=== PATIENT | male | born 1935 | race Caucasian/White ===

== ENCOUNTER 2017-11-30 11:01 | Inpatient (IN) | payer MEDICARE, BC ==
[2017-11-30] MEDS ORDERED: LIDOCAINE URO-JET JELLY 2% 5 ML KIT URETHRAL ONE (11:57)
[2017-11-30 12:11] LABS: Basophils % (A) 0 %; Eosinophils # (A) 0.1 k/uL (0-0.7); Eosinophils % (A) 2 %; HCT 41.1 % (39.0-53.0); HGB 13.2 gm/dL (13.0-17.5); Lymphocytes # (A) 0.8 k/uL (1.0-4.8); Lymphocytes % (A) 9 %; MCH 32.6 pg (25.0-35.0); MCHC 32.2 g/dL (31.0-37.0); MCV 101.4 fL (80.0-100.0); Monocytes # (A) 0.5 k/uL (0-1.0); Monocytes % (A) 5 %; Neutrophils # (A) 7.3 k/uL (1.3-7.7); Neutrophils % (A) 83 %; Platelet Count 374 k/uL (150-450); RBC 4.05 m/uL (4.30-5.90); RDW 12.6 % (11.5-15.5); WBC 8.8 k/uL (3.8-10.6)
[2017-11-30 12:22] LABS: Albumin 3.1 g/dL (3.5-5.0); Calcium 9.1 mg/dL (8.4-10.2); Potassium 4.5 mmol/L (3.5-5.1); Total Bilirubin 0.7 mg/dL (0.2-1.3); Total Protein 5.9 g/dL (6.3-8.2)
--- NOTE | 2017-11-30 12:29 | ED ---
Abdominal Pain HPI - General Chief Complaint: Abdominal Pain Stated Complaint: MALE , ABD PAIN Time Seen by Provider: 11/30/17 11:48 Source: family, RN notes reviewed, old records reviewed Mode of arrival: ambulatory Limitations: no limitations - History of Present Illness Initial Comments: 82-year-old male presenting with abdominal swelling. Patient is accompanied by his was able to contribute to the history. He has advanced dementia. She states he has had some intermittent complaints of abdominal pain. She hasn't noted lower abdominal swelling over the past one month. This has progressed to the point where the patient cannot button his pants. No fever or chills. No nausea vomiting. Patient has been having a normal bowel movement every day. - Related Data Home Medications Medication Instructions Recorded Confirmed Aricept 23mg 23 mg PO HS 11/30/17 11/30/17 Cholecalciferol [Vitamin D3] 1,000 unit PO DAILY 11/30/17 11/30/17 Fish Oil/Dha/Epa [Fish Oil 1,200 1 cap PO DAILY 11/30/17 11/30/17 mg Fish Oil] Flaxseed Oil [[place]-3 Flaxseed Oil] 1,000 mg PO DAILY 11/30/17 11/30/17 Memantine [Namenda] 10 mg PO BID 11/30/17 11/30/17 Red Yeast Rice 600 mg PO DAILY 11/30/17 11/30/17 buPROPion XL [Wellbutrin Xl] 150 mg PO DAILY 11/30/17 11/30/17 Allergies Allergy/AdvReac Type Severity Reaction Status Date / Time No Known Allergies Allergy Verified 11/30/17 12:51 Review of Systems ROS Statement: Those systems with pertinent positive or pertinent negative responses have been documented in the HPI. ROS Other: All systems not noted in ROS Statement are negative. Past Medical History Past Medical History: Dementia, Hyperlipidemia History of Any Multi-Drug Resistant Organisms: None Reported Past Surgical History: Hernia Repair Additional Past Surgical History / Comment(s): carpal tunnel surgery, vasectomy , cataract surgery Past Psychological History: No Psychological Hx Reported Smoking Status: Never smoker Past Alcohol Use History: None Reported Past Drug Use History: None Reported General Exam Limitations: no limitations General appearance: in no apparent distress Head exam: Present: atraumatic, normocephalic Eye exam: Present: normal appearance, PERRL ENT exam: Present: mucous membranes dry Neck exam: Present: normal inspection. Absent: tenderness, meningismus Respiratory exam: Present: decreased breath sounds (Decreased breath sounds right lung head.). Absent: respiratory distress, wheezes, rales Cardiovascular Exam: Present: regular rate, normal rhythm GI/Abdominal exam: Present: soft, distended, mass. Absent: tenderness Extremities exam: Present: normal inspection, normal capillary refill Skin exam: Present: warm, dry, intact. Absent: cyanosis, diaphoretic Course Vital Signs 11/30/17 11/30/17 11:19 14:04 Temperature 97.9 F 97.7 F Pulse Rate 86 77 Respiratory 16 18 Rate Blood Pressure 142/85 150/81 O2 Sat by Pulse 96 95 Oximetry Medical Decision Making - Medical Decision Making 82-year-old male presenting with abdominal distention, bili is somewhat distended, there is concern for intra-abdominal pathology, given the patient is poor historian, CT is obtained, this is negative for significant acute intra- abdominal abnormalities, there is evidence of a large right-sided pleural effusion, chest CT is obtained which confirms near-complete hydro-thorax. There is some mediastinal shift. Patient has normal oxygenation, stable vital signs. Case is discussed with pulmonology, Dr. Courtney, recommends ultrasound. Patient will be admitted for further treatment and evaluation. Laboratory studies reviewed, normal white blood cell count, stable hemoglobin, CMP is unremarkable. - Lab Data Result diagrams: 11/30/17 11:43 11/30/17 11:43 Lab Results 11/30/17 11/30/17 11/30/17 Range/Units 11:43 11:43 13:15 WBC 8.8 (3.8-10.6) k/uL RBC 4.05 L (4.30-5.90) m/uL Hgb 13.2 (13.0-17.5) gm/dL Hct 41.1 (39.0-53.0) % MCV 101.4 H (80.0-100.0) fL MCH 32.6 (25.0-35.0) pg MCHC 32.2 (31.0-37.0) g/dL RDW 12.6 (11.5-15.5) % Plt Count 374 (150-450) k/uL Neutrophils % 83 % Lymphocytes % 9 % Monocytes % 5 % Eosinophils % 2 % Basophils % 0 % Neutrophils # 7.3 (1.3-7.7) k/uL Lymphocytes # 0.8 L (1.0-4.8) k/uL Monocytes # 0.5 (0-1.0) k/uL Eosinophils # 0.1 (0-0.7) k/uL Basophils # 0.0 (0-0.2) k/uL Sodium 142 (137-145) mmol/L Potassium 4.5 (3.5-5.1) mmol/L Chloride 106 (98-107) mmol/L Carbon Dioxide 28 (22-30) mmol/L Anion Gap 8 mmol/L BUN 23 H (9-20) mg/dL Creatinine 1.01 (0.66-1.25) mg/dL Est GFR (CKD-EPI)AfAm 80 (>60 ml/min/1.73 sqM) Est GFR (CKD-EPI)NonAf 69 (>60 ml/min/1.73 sqM) Glucose 168 H (74-99) mg/dL Calcium 9.1 (8.4-10.2) mg/dL Total Bilirubin 0.7 (0.2-1.3) mg/dL AST 44 (17-59) U/L ALT 52 (21-72) U/L Alkaline Phosphatase 97 (38-126) U/L Total Protein 5.9 L (6.3-8.2) g/dL Albumin 3.1 L (3.5-5.0) g/dL Amylase 90 (30-110) U/L Lipase 72 (23-300) U/L Urine Color Yellow Urine Appearance Clear (Clear) Urine pH 5.5 (5.0-8.0) Ur Specific [place] 1.024 (1.001-1.035) Urine Protein Trace H (Negative) Urine Glucose (UA) Negative (Negative) Urine Ketones Negative (Negative) Urine Blood Negative (Negative) Urine Nitrite Negative (Negative) Urine Bilirubin Negative (Negative) Urine Urobilinogen 2.0 (<2.0) mg/dL Ur Leukocyte Esterase Trace H (Negative) Urine RBC 1 (0-5) /hpf Urine WBC 7 H (0-5) /hpf Urine Mucus Few H (None) /hpf Disposition Clinical Impression: Pleural effusion Disposition: ADMITTED IP TO THIS HOSP Condition: Stable Is patient prescribed a controlled substance at d/c from ED?: No Referrals: Richard Katz MD [Primary Care Provider] - 1-2 days Decision to Admit Reason: Admit from EC Decision Date: 11/30/17 Decision Time: 15:23
[2017-11-30 13:50] LABS: Appearance,Urine Clear (Clear); Bilirubin,Urine Negative (Negative); Blood,Urine Negative (Negative); Color,Urine Yellow; Glucose,Urine (UA) Negative (Negative); Ketones,Urine Negative (Negative); Leukocyte Esterase,Urine Trace (Negative); Mucus,Urine Few /hpf; Nitrite,Urine Negative (Negative); PH, Urine 5.5 (5.0-8.0); Protein,Urine Trace (Negative); RBC,Urine 1 /hpf (0-5); Specific Gravity,Urine 1.024 (1.001-1.035); WBC,Urine 7 /hpf (0-5)
--- NOTE | 2017-11-30 14:02 | CT ---
EXAMINATION TYPE: CT abdomen pelvis w con DATE OF EXAM: 11/30/2017 REFERENCE: Previous study dated 10/16/2005. HISTORY: abdominal pain HISTORY: Abdominal pain REFERENCE: NONE CT DLP: 547.6 mGy Automated exposure control for dose reduction was used. TECHNIQUE: Helical acquisition through the abdomen and pelvis was obtained following the oral ingesti on of without Oral Contrast and following intravenous administration of 100 mL of Isovue 300. The axel a was reformatted in axial, coronal and sagittal projections. FINDINGS: There is a large right-sided pleural effusion with complete atelectasis of the visualized portions of the right lung. There is a smaller left effusion. There is calcified pleural plaque on th e left. The heart is shifted towards the left. There is no definite pericardial fluid. The heart is not enlar ged. The right hemidiaphragm is displaced inferiorly. The liver is prominent measuring 18 cm. There appears to be soft tissue within the gallbladder. The s pleen is unremarkable. Both adrenal glands are normal. Both kidneys demonstrate function and appear morphologically normal. The pancreas is not well-visualized. There is moderate atheromatous calcification of the visualized arterial tree. The bladder is not distended. There is some questionable thickening of the sigmoid colon. This may BE secondary to lack of distenti on. Small bowel caliber is normal. There is no free fluid and no free air. There is degenerative disc disease and facet arthropathy and hypertrophic spondylosis within the spin e. No bony destructive lesion is seen. IMPRESSION: 1. RIGHT-SIDED HYDROTHORAX DISPLACING THE DIAPHRAGM INFERIORLY IN THE MEDIASTINAL STRUCTURES TOWARDS THE LEFT MAY BE UNDER TENSION. 2. COMPLETE COLLAPSE OF THE VISUALIZED PORTIONS OF THE RIGHT LUNG. 3. EVIDENCE OF OLD SPECIFICITY EXPOSURE WITH CALCIFIED PLEURAL PLAQUES. 4. SMALL LEFT PLEURAL EFFUSION. 5. MILD HEPATOMEGALY. 6. QUESTIONABLE THICKENING OF THE SIGMOID COLON. PLEASE CORRELATE FOR COLITIS. 7. DEGENERATIVE CHANGES WITHIN THE SPINE.
[2017-11-30 14:04] VITALS: RESP 18; TEMP 97.7
--- NOTE | 2017-11-30 15:13 | CT ---
EXAMINATION TYPE: CT chest wo con DATE OF EXAM: 11/30/2017 COMPARISON: CT abdomen pelvis earlier today. HISTORY: Abnormal CT abd/pel. CT DLP: 265.6 mGycm. Automated Exposure Control for Dose Reduction was Utilized. TECHNIQUE: CT scan of the thorax is performed without IV contrast. FINDINGS: LUNGS: Large right pleural effusion is confirmed with associated compressive atelectasis, there is mi nimal aerated lung medial right upper lobe. There is additional consolidation/atelectasis at this lev el. There is mass effect on the mediastinum which is deviated to left of midline. Evaluation suboptim al as there is significant respiratory motion artifact degradation. Mild underlying emphysematous casper nge is felt present. There is tiny left pleural effusion. There is medial left lung anterior irregula r groundglass opacity near axial image 33. MEDIASTINUM: Lack of IV contrast is noted to limit evaluation for mediastinal and especially hilar ad enopathy. There are no definitive greater than 1 cm hilar or mediastinal lymph nodes. No cardiomega ly or pericardial effusion is seen. Coronary artery calcification is present which is noted marker fo r underlying coronary artery disease. OTHER: Please refer to same day CT abdomen and pelvis report for complete details on the visualized u pper abdomen. Secretion from recent contrast-enhanced CT in the kidneys is noted. Osseous structures are demineralized with slight S-shaped scoliotic curvature. There is exaggerated thoracic kyphosis wi th moderate to severe multilevel anterior spurring. Bilateral gynecomastia is felt present. IMPRESSION: Large right pleural effusion causing mediastinal shift to the left is confirmed. Backgrou nd mild emphysematous change. Perhaps patchy acute infectious process anterior left mid lung. Conside r thoracentesis for diagnostic and/or therapeutic purposes.
[2017-11-30] MEDS ORDERED: ACETAMINOPHEN TAB 325 MG TAB PO PRN (15:19)
[2017-11-30] MEDS ORDERED: NALOXONE 0.4 MG/ML 1 ML VIAL IV PRN (15:19)
[2017-11-30] MEDS ORDERED: LIDOCAINE 2% INJ 20 MG/ML (20 ML MDV) SQ STA (17:36)
--- NOTE | 2017-11-30 17:54 | XR ---
EXAMINATION TYPE: XR chest 1V DATE OF EXAM: 11/30/2017 CLINICAL HISTORY: Right-sided thoracentesis. TECHNIQUE: Single AP portable upright view of the chest is obtained. COMPARISON: Chest CT from earlier today. FINDINGS: There is residual small to moderate-sized right-sided pleural effusion after thoracentesis with associated compressive atelectasis. There is marked improvement from CT with improvement in med iastinal shift. Background chronic emphysematous change with scattered left midlung atelectasis and/o r infiltrate remains present. Cardiac silhouette size is within normal limits. Demineralization is pr esent. Note is made of bilateral calcified pleural plaques seen in retrospect on CT. IMPRESSION: Marked improvement in right-sided pleural effusion and mediastinal shift after thoracente sis. Chronic emphysematous change and evidence of underlying asbestos exposure. Patchy left mid lung atelectasis and/or infiltrate is redemonstrated. Persistent small right pleural effusion and associat ed right basilar atelectasis and/or infiltrate. No sizable pneumothorax.
--- NOTE | 2017-11-30 18:01 | P.CNPUL ---
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 Patient presented to the ER with mostly from abdominal vague discomfort, and some shortness of breath. Workup included a CT of the abdomen which was basically nondiagnostic except it did show large right-sided pleural effusion with complete atelectasis of the right lung, there was also evidence of calcified pleural plaque on the left, there was displacement of the right hemidiaphragm inferiorly, and shifting of the trachea to the contralateral side. Abdominal organs were noted to be relatively unremarkable. I was notified from the ER physician about this patient, I came in, reviewed his CT of the chest, chest x- ray, and I recommended a right-sided thoracentesis at bedside in the ER. Consent was obtained from the and from the daughter, I proceeded to a right -sided thoracentesis, and I was able to drain 3.2 L of serosanguineous fluid from the right pleural space. Patient felt much better after the procedure, hence I discussed with the patient and with the family the option of being discharged home and follow up with me on outpatient basis in the next few days. Family seems to be quite agreeable to this recommendation, the fluid was sent for cytology, it is strongly suspicious for malignancy. And the patient will be discharged home. I discussed the patient's condition with the ER physician, and we both agreed on discharging the patient home. And follow-up on outpatient basis. Review of Systems ROS unobtainable: due to mental status (Patient is a very poor historian, he has significant dementia, denied any specific complaints, but according to the daughter he has been generally weak, losing weight, poor appetite, shortness of breath, some vague abdominal discomfort. Otherwise no significant symptomatology.) Past Medical History Past Medical History: Dementia, Hyperlipidemia History of Any Multi-Drug Resistant Organisms: None Reported Past Surgical History: Hernia Repair Additional Past Surgical History / Comment(s): carpal tunnel surgery, vasectomy , cataract surgery Past Psychological History: No Psychological Hx Reported Smoking Status: Never smoker Past Alcohol Use History: None Reported Past Drug Use History: None Reported Medications and Allergies Home Medications Medication Instructions Recorded Confirmed Type Aricept 23mg 23 mg PO HS 11/30/17 11/30/17 History Cholecalciferol [Vitamin D3] 1,000 unit PO DAILY 11/30/17 11/30/17 History Fish Oil/Dha/Epa [Fish Oil 1,200 1 cap PO DAILY 11/30/17 11/30/17 History mg Fish Oil] Flaxseed Oil [[place]-3 Flaxseed Oil] 1,000 mg PO DAILY 11/30/17 11/30/17 History Memantine [Namenda] 10 mg PO BID 11/30/17 11/30/17 History Red Yeast Rice 600 mg PO DAILY 11/30/17 11/30/17 History buPROPion XL [Wellbutrin Xl] 150 mg PO DAILY 11/30/17 11/30/17 History Allergies Allergy/AdvReac Type Severity Reaction Status Date / Time No Known Allergies Allergy Verified 11/30/17 12:51 Physical Exam Vitals: Vital Signs Temp Pulse Resp BP Pulse Ox 11/30/17 14:04 97.7 F 77 18 150/81 95 11/30/17 11:19 97.9 F 86 16 142/85 96 Intake and Output 11/30/17 11/30/17 11/30/17 06:59 14:59 22:59 Other: Weight 63.503 kg Physical Exam revealed an 82-year-old white male in no distress. Head: Atraumatic, normocephalic. HEENT:[Neck is supple.] [No neck masses.] [No thyromegaly.] [No JVD.] Chest: [Extremely diminished breath sounds on the right side, dullness on the right side, left side is relatively clear, no chest wall tenderness.] Cardiac Exam: [Normal S1 and S2, no S3 gallop, no murmur.] Abdomen: [Soft, nontender, no megaly, no rebound, no guarding, normal bowel sounds.] Extremities: [No clubbing, no edema, no cyanosis.] Neurological Exam: Confused, but no other focal neurologic deficit.] Lymphatics: No lymphadenopathy. Psychiatric: Normal mood, affect, confused, poor mental status examination. Skin: No rashes, good skin turgor, no cyanosis. Results - Laboratory Findings CBC and BMP: 11/30/17 11:43 11/30/17 11:43 Abnormal lab findings: Abnormal Labs 11/30/17 11/30/17 11/30/17 11:43 11:43 13:15 RBC 4.05 L MCV 101.4 H Lymphocytes # 0.8 L BUN 23 H Glucose 168 H Total Protein 5.9 L Albumin 3.1 L Urine Protein Trace H Ur Leukocyte Esterase Trace H Urine WBC 7 H Urine Mucus Few H - Diagnostic Findings CT scan - chest: image reviewed (As noted in HPI, there is large right-sided pleural effusion with compressive atelectasis of the right lung significant shift to the left,) Assessment and Plan Assessment: Impression: 1 large right-sided pleural effusion, most likely malignant unless proven otherwise. Considering the patient's history of being a refinery pipeline operator, this is most likely mesothelioma unless proven otherwise. 2 senile dementia 3 abdominal pain, most likely secondary to downward displacement of the diaphragm from large right-sided pleural effusion. 4 status post right sided thoracentesis and 3.2 L of serosanguineous fluid removed from the right pleural space. Recommendation: Consider discharging the patient home, see me in the office in 3 days. Patient is to come back to the ER if he develops any worsening pulmonary symptoms in the next 3 days. Otherwise I will see him in the office in 3 days. Time with Patient: Greater than 30
--- NOTE | 2017-11-30 18:01 | ED ---
Medical Decision Making - Medical Decision Making Patient given outpatient referral information for Dr. Courtney. - Lab Data Result diagrams: 11/30/17 11:43 11/30/17 11:43 Lab Results 11/30/17 11/30/17 11/30/17 Range/Units 11:43 11:43 13:15 WBC 8.8 (3.8-10.6) k/uL RBC 4.05 L (4.30-5.90) m/uL Hgb 13.2 (13.0-17.5) gm/dL Hct 41.1 (39.0-53.0) % MCV 101.4 H (80.0-100.0) fL MCH 32.6 (25.0-35.0) pg MCHC 32.2 (31.0-37.0) g/dL RDW 12.6 (11.5-15.5) % Plt Count 374 (150-450) k/uL Neutrophils % 83 % Lymphocytes % 9 % Monocytes % 5 % Eosinophils % 2 % Basophils % 0 % Neutrophils # 7.3 (1.3-7.7) k/uL Lymphocytes # 0.8 L (1.0-4.8) k/uL Monocytes # 0.5 (0-1.0) k/uL Eosinophils # 0.1 (0-0.7) k/uL Basophils # 0.0 (0-0.2) k/uL Sodium 142 (137-145) mmol/L Potassium 4.5 (3.5-5.1) mmol/L Chloride 106 (98-107) mmol/L Carbon Dioxide 28 (22-30) mmol/L Anion Gap 8 mmol/L BUN 23 H (9-20) mg/dL Creatinine 1.01 (0.66-1.25) mg/dL Est GFR (CKD-EPI)AfAm 80 (>60 ml/min/1.73 sqM) Est GFR (CKD-EPI)NonAf 69 (>60 ml/min/1.73 sqM) Glucose 168 H (74-99) mg/dL Calcium 9.1 (8.4-10.2) mg/dL Total Bilirubin 0.7 (0.2-1.3) mg/dL AST 44 (17-59) U/L ALT 52 (21-72) U/L Alkaline Phosphatase 97 (38-126) U/L Total Protein 5.9 L (6.3-8.2) g/dL Albumin 3.1 L (3.5-5.0) g/dL Amylase 90 (30-110) U/L Lipase 72 (23-300) U/L Urine Color Yellow Urine Appearance Clear (Clear) Urine pH 5.5 (5.0-8.0) Ur Specific [place] 1.024 (1.001-1.035) Urine Protein Trace H (Negative) Urine Glucose (UA) Negative (Negative) Urine Ketones Negative (Negative) Urine Blood Negative (Negative) Urine Nitrite Negative (Negative) Urine Bilirubin Negative (Negative) Urine Urobilinogen 2.0 (<2.0) mg/dL Ur Leukocyte Esterase Trace H (Negative) Urine RBC 1 (0-5) /hpf Urine WBC 7 H (0-5) /hpf Urine Mucus Few H (None) /hpf Disposition Clinical Impression: Pleural effusion Disposition: HOME SELF-CARE Condition: Fair Is patient prescribed a controlled substance at d/c from ED?: No Time of Disposition: 18:01
[2017-11-30 18:02] VITALS: BP 129/72; PULSE 70
[2017-11-30 21:53] LABS: Appearance,BF Bloody
[2017-11-30 21:54] LABS: Nucleated Cells, Body Fluid 200 /uL; RBC, Body Fluid 37200 /uL
[2017-11-30 21:56] LABS: Mononuclear WBC,Body Fluid 19 %; Polynuclear WBC,Body Fluid 76 %; Total Cells Counted,Body Fluid 100
--- NOTE | 2017-11-30 21:58 | PCN ---
PROCEDURE NOTE OPERATIVE REPORT: Right-sided thoracentesis. PREOPERATIVE DIAGNOSIS: Large right pleural effusion. POSTOPERATIVE DIAGNOSIS: Large right pleural effusion. ANESTHESIA: Used 3 mL of 1% lidocaine. PROCEDURE: Verbal consent was obtained from his over the phone and from his daughter at bedside. The patient was placed in a sitting upright position, leaning forward on a bedside table. The area below the right scapula was prepared in a sterile fashion and drapes were applied. At the level of the 8th intercostal space and tip of the scapula, the area was locally anesthetized. With 3 mL of 1% lidocaine. Then a 23-gauge needle was advanced into the pleural space, and fluid was localized, noted to be serosanguineous. Then a small tiny incision was made, and a standard thoracentesis catheter and needle were used. Needle inserted at the same site, advanced into the pleural space. When the fluid was obtained, the catheter was advanced and the needle was pulled out of the pleural space. Free-flowing fluid was removed, the fluid was serosanguineous, we removed a total of 3.2 L of serosanguineous fluid from the right pleural space. Highly suggestive of malignancy based on the appearance of the fluid. The procedure was well tolerated, no evidence of any immediate complications. Chest x- ray postoperatively showed no evidence of complications, there was a very minimal residual right-sided effusion noted and there was significant and dramatic expansion of the right lung. MMODL / IJN: [id number] /
[2017-12-02 10:24] LABS: Total Protein, Body Fluid 4000 mg/dL
== END 2017-11-30 18:13 | disposition home or self-care (01) | DRG 188 ==
LOC: EC 11:01 → 6SEL 15:19
PROVIDERS: ADMIT Hospitalist; ATTEND Hospitalist
PROC: 0W993ZX Drainage of Right Pleural Cavity, Percutaneous Approach, Diagnostic (ICD-10-PCS; principal; 2017-11-30)
DX: J90 Pleural effusion, not elsewhere classified (principal); R10.9 Unspecified abdominal pain; R06.02 Shortness of breath; E78.5 Hyperlipidemia, unspecified; F03.90 Unspecified dementia, unspecified severity, without behavioral disturbance, psychotic disturbance, mood disturbance, and anxiety; Z79.899 Other long term (current) drug therapy; Z87.891 Personal history of nicotine dependence
CPT/HCPCS: 32554; 36415; 71045; 71250; 74177; 80053; 81001; 82150; 82945; 83615; 83690; 84157; 85025; 87070; 87077; 87102; 87116; 87186; 87205; 87206; 89050; 99285

== ENCOUNTER 2017-12-10 22:27 | Inpatient (IN) | payer MEDICARE, BC ==
--- NOTE | 2017-12-10 23:06 | ED ---
SOB HPI - General Chief Complaint: Shortness of Breath Stated Complaint: lung pain & poss fluid on lungs Time Seen by Provider: 12/10/17 22:49 Source: family Mode of arrival: wheelchair Limitations: no limitations - History of Present Illness Initial Comments: [place] is an 82-year-old male with past medical history is documented below, most significant for recent development of a pleural effusion which was drained by pulmonology last week with 3.2 L of fluid removed. Patient was subsequently discharged home feeling much better at that time. His brought him back to the emergency department today for reevaluation due to worsening shortness of breath, increased work of breathing and concerned that he has a fever. His reports that she noted that his face is and knows it appeared flushed since yesterday. Today she noticed that he seemed to be working hard to breathe , breathing rapidly and felt warm to the touch. She reports that she tried to listen to his breathing and was concerned that fluid had reaccumulated in his right long period. reports that they're uncertain of the cause of the effusion, there is concern that he may have cancer of though there is been no definitive diagnosis. Patient presently demented but reports mild discomfort on his right side, mild shortness of breath and subjective fevers and chills. - Related Data Home Medications Medication Instructions Recorded Confirmed Aricept 23mg 23 mg PO HS 11/30/17 12/10/17 Cholecalciferol [Vitamin D3] 1,000 unit PO DAILY 11/30/17 12/10/17 Fish Oil/Dha/Epa [Fish Oil 1,200 1 cap PO DAILY 11/30/17 12/10/17 mg Fish Oil] Flaxseed Oil [[place]-3 Flaxseed Oil] 1,000 mg PO DAILY 11/30/17 12/10/17 Memantine [Namenda] 10 mg PO BID 11/30/17 12/10/17 Red Yeast Rice 600 mg PO DAILY 11/30/17 12/10/17 buPROPion XL [Wellbutrin Xl] 150 mg PO DAILY 11/30/17 12/10/17 Allergies Allergy/AdvReac Type Severity Reaction Status Date / Time No Known Allergies Allergy Verified 12/10/17 22:47 Review of Systems ROS Statement: Those systems with pertinent positive or pertinent negative responses have been documented in the HPI. ROS Other: All systems not noted in ROS Statement are negative. Past Medical History Past Medical History: Dementia, Hyperlipidemia History of Any Multi-Drug Resistant Organisms: MRSA Date of last positivie culture/infection: 11/30/17 MDRO Source:: MRSA PLEURAL FLUID Past Surgical History: Hernia Repair Additional Past Surgical History / Comment(s): carpal tunnel surgery, vasectomy , cataract surgery Past Psychological History: No Psychological Hx Reported Smoking Status: Never smoker Past Alcohol Use History: None Reported Past Drug Use History: None Reported General Exam - General Exam Comments Initial Comments: Physical Exam GENERAL: Chronically ill-appearing elderly gentleman HENT: Normocephalic, Atraumatic. EYES: PERRL, EOMI PULMONARY: Decreased breath sounds on the right CARDIOVASCULAR: RRR ABDOMEN: Soft and nontender with normal bowel sounds. SKIN: Skin is clear with senile changes : Deferred NEUROLOGIC: Patient is alert and oriented to self. Moving all extremities spontaneously MUSCULOSKELETAL: Normal extremities with adequate strength and full range of motion. No lower extremity swelling or edema. No calf tenderness. Diffuse atrophy PSYCHIATRIC: Normal psychiatric evaluation. 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 ] Respiratory 18 18 Rate Blood Pressure 146/71 O2 Sat by Pulse 93 L Oximetry 12/10/17 12/10/17 12/11/17 23:10 23:40 00:10 Temperature Pulse Rate 72 70 71 Pulse Rate [ Alkylation Operator ] Respiratory 19 18 17 Rate Blood Pressure 146/80 148/76 141/90 O2 Sat by Pulse 98 97 96 Oximetry 12/11/17 12/11/17 12/11/17 00:50 01:30 02:00 Temperature Pulse Rate 66 68 72 Pulse Rate [ Alkylation Operator ] Respiratory 19 19 19 Rate Blood Pressure 134/90 135/70 160/79 O2 Sat by Pulse 95 95 94 L Oximetry Medical Decision Making - Medical Decision Making The patient was seen and evaluated, history was reviewed through the chart and the . Patient able to answer questions otherwise history limited by his dementia Patient with recurrent pleural effusions, no appears flushed, warm to the touch , increased work of breathing Patient is tachycardic and tachypneic upon initial evaluation Labs and imaging were ordered Imaging suggestive of new bilateral infiltrates suggestive of pneumonia, given the patient's recent hospitalization an unknown underlying etiology I will treat with broad-spectrum antibiotics Given the patient diagnosis of bilateral pneumonia, recurrent pleural effusion I will plan to admit the patient for further evaluation. Consult pulmonology was placed. - Lab Data Result diagrams: 12/10/17 23:00 12/10/17 23:00 Lab Results 12/10/17 12/10/17 12/10/17 Range/Units 23:00 23:00 23:00 WBC 11.4 H (3.8-10.6) k/uL RBC 3.91 L (4.30-5.90) m/uL Hgb 12.4 L (13.0-17.5) gm/dL Hct 39.8 (39.0-53.0) % MCV 101.8 H (80.0-100.0) fL MCH 31.7 (25.0-35.0) pg MCHC 31.1 (31.0-37.0) g/dL RDW 12.6 (11.5-15.5) % Plt Count 483 H (150-450) k/uL Neutrophils % 77 % Lymphocytes % 11 % Monocytes % 8 % Eosinophils % 2 % Basophils % 0 % Neutrophils # 8.7 H (1.3-7.7) k/uL Lymphocytes # 1.3 (1.0-4.8) k/uL Monocytes # 0.9 (0-1.0) k/uL Eosinophils # 0.2 (0-0.7) k/uL Basophils # 0.0 (0-0.2) k/uL PT (9.0-12.0) sec INR (<1.2) APTT (22.0-30.0) sec Sodium 136 L (137-145) mmol/L Potassium 5.1 (3.5-5.1) mmol/L Chloride 104 (98-107) mmol/L Carbon Dioxide 25 (22-30) mmol/L Anion Gap 7 mmol/L BUN 25 H (9-20) mg/dL Creatinine 1.00 (0.66-1.25) mg/dL Est GFR (CKD-EPI)AfAm 81 (>60 ml/min/1.73 sqM) Est GFR (CKD-EPI)NonAf 70 (>60 ml/min/1.73 sqM) Glucose 105 H (74-99) mg/dL Calcium 8.9 (8.4-10.2) mg/dL Magnesium 2.2 (1.6-2.3) mg/dL Total Bilirubin 0.4 (0.2-1.3) mg/dL AST 37 (17-59) U/L ALT 48 (21-72) U/L Alkaline Phosphatase 113 (38-126) U/L Total Creatine Kinase 41 L (55-170) U/L CK-MB (CK-2) 1.4 (0.0-2.4) ng/mL CK-MB (CK-2) Rel Index 3.4 Troponin I <0.012 (0.000-0.034) ng/mL NT-Pro-B Natriuret Pep pg/mL Total Protein 5.6 L (6.3-8.2) g/dL Albumin 3.0 L (3.5-5.0) g/dL 12/10/17 12/10/17 Range/Units 23:00 23:00 WBC (3.8-10.6) k/uL RBC (4.30-5.90) m/uL Hgb (13.0-17.5) gm/dL Hct (39.0-53.0) % MCV (80.0-100.0) fL MCH (25.0-35.0) pg MCHC (31.0-37.0) g/dL RDW (11.5-15.5) % Plt Count (150-450) k/uL Neutrophils % % Lymphocytes % % Monocytes % % Eosinophils % % Basophils % % Neutrophils # (1.3-7.7) k/uL Lymphocytes # (1.0-4.8) k/uL Monocytes # (0-1.0) k/uL Eosinophils # (0-0.7) k/uL Basophils # (0-0.2) k/uL PT 10.4 (9.0-12.0) sec INR 1.1 (<1.2) APTT 25.5 (22.0-30.0) sec Sodium (137-145) mmol/L Potassium (3.5-5.1) mmol/L Chloride (98-107) mmol/L Carbon Dioxide (22-30) mmol/L Anion Gap mmol/L BUN (9-20) mg/dL Creatinine (0.66-1.25) mg/dL Est GFR (CKD-EPI)AfAm (>60 ml/min/1.73 sqM) Est GFR (CKD-EPI)NonAf (>60 ml/min/1.73 sqM) Glucose (74-99) mg/dL Calcium (8.4-10.2) mg/dL Magnesium (1.6-2.3) mg/dL Total Bilirubin (0.2-1.3) mg/dL AST (17-59) U/L ALT (21-72) U/L Alkaline Phosphatase (38-126) U/L Total Creatine Kinase (55-170) U/L CK-MB (CK-2) (0.0-2.4) ng/mL CK-MB (CK-2) Rel Index Troponin I (0.000-0.034) ng/mL NT-Pro-B Natriuret Pep 295 pg/mL Total Protein (6.3-8.2) g/dL Albumin (3.5-5.0) g/dL - EKG Data EKG Comments: EKG obtained at 10:53 PM, rate of 77, rhythm is sinus, there is normal axis, normal intervals, MI 150, QRS 62, QTc is 4:30. No acute ST elevations or depressions no evidence of acute ischemia or infarction. Disposition Clinical Impression: Community acquired pneumonia, Pleural effusion Disposition: ADMITTED IP TO THIS HOSP Condition: Serious
[2017-12-10 23:26] LABS: Basophils % (A) 0 %; Eosinophils # (A) 0.2 k/uL (0-0.7); Eosinophils % (A) 2 %; HCT 39.8 % (39.0-53.0); HGB 12.4 gm/dL (13.0-17.5); Lymphocytes # (A) 1.3 k/uL (1.0-4.8); Lymphocytes % (A) 11 %; MCH 31.7 pg (25.0-35.0); MCHC 31.1 g/dL (31.0-37.0); MCV 101.8 fL (80.0-100.0); Mean Platelet Volume 6.7; Monocytes # (A) 0.9 k/uL (0-1.0); Monocytes % (A) 8 %; Neutrophils # (A) 8.7 k/uL (1.3-7.7); Neutrophils % (A) 77 %; Platelet Count 483 k/uL (150-450); RBC 3.91 m/uL (4.30-5.90); RDW 12.6 % (11.5-15.5); WBC 11.4 k/uL (3.8-10.6)
[2017-12-10 23:37] LABS: Calcium 8.9 mg/dL (8.4-10.2); Magnesium 2.2 mg/dL (1.6-2.3); Potassium 5.1 mmol/L (3.5-5.1); Total Bilirubin 0.4 mg/dL (0.2-1.3); Total Protein 5.6 g/dL (6.3-8.2)
[2017-12-10 23:40] LABS: INR 1.1 (<1.2); Partial Thromboplastin Time 25.5 sec (22.0-30.0); Prothrombin Time 10.4 sec (9.0-12.0)
[2017-12-10 23:46] LABS: Creatine Kinase 41 U/L (55-170)
--- NOTE | 2017-12-10 23:53 | XR ---
EXAMINATION TYPE: XR chest 2V DATE OF EXAM: 12/10/2017 COMPARISON: 12/05/2017 HISTORY: Left side chest pain TECHNIQUE: Frontal and lateral views of the chest are obtained. FINDINGS: There is significant opacification right lower hemithorax consistent with pleural fluid an d infiltrate. There is an approximate 7 cm area of patchy infiltrate in the periphery left midlung. I see no definite heart failure. There are chest leads. Thoracic aorta is atheromatous. There is sligh t blunting of left costophrenic angle. There is osteopenia. IMPRESSION: There is chronic moderate right pleural effusion with infiltrate and atelectasis in the right lower lobe. This appears slightly worse than last exam. There is a new infiltrate in the left m idlung compared to old exam. Small left pleural effusion. No gross heart failure.
[2017-12-10] MEDS ORDERED: PIPERACILLIN-TAZOBACTAM 3.375 GM in DEXTROSE/WATER 1 50ML.BAG IVPB STA (23:56)
[2017-12-10] MEDS ORDERED: VANCOMYCIN IV PER PHARMACY 1 EACH MISC MISCELLANE PRN (23:56)
[2017-12-10] MEDS ORDERED: VANCOMYCIN 1,250 MG in SODIUM CHLORIDE 0.9% 250 ML IVPB STA (23:58)
[2017-12-10 23:59] LABS: Creatine Kinase MB 1.4 ng/mL (0.0-2.4); Troponin I <0.012 ng/mL (0.000-0.034)
[2017-12-11] MEDS ORDERED: NALOXONE 0.4 MG/ML 1 ML VIAL IV PRN (00:38)
[2017-12-11] MEDS ORDERED: ONDANSETRON 4 MG/2 ML VIAL IVP PRN (00:38)
[2017-12-11] MEDS: SODIUM CHLORIDE 0.9% 1,000 ML IV SCH (02:02)
[2017-12-11 02:51] VITALS: BMI 22.4
--- NOTE | 2017-12-11 10:27 | P.HPIM ---
History of Present Illness Now was brought to the emergency room by the with a report of increasing shortness of breath. Patient does have history of pleural effusion with MRSA. Patient was diagnosed with pneumonia pleural effusion pulmonology has been consulted vancomycin and Timentin initiated Review of Systems Constitutional: Reports weight loss Respiratory: Reports dyspnea Past Medical History Past Medical History: Dementia, Hyperlipidemia History of Any Multi-Drug Resistant Organisms: MRSA Date of last positivie culture/infection: 11/30/17 MDRO Source:: MRSA PLEURAL FLUID Past Surgical History: Hernia Repair Additional Past Surgical History / Comment(s): carpal tunnel surgery, vasectomy , cataract surgery Past Anesthesia/Blood Transfusion Reactions: No Reported Reaction Past Psychological History: No Psychological Hx Reported Smoking Status: Former smoker Past Alcohol Use History: None Reported Past Drug Use History: None Reported - Past Family History Mother Additional Family Medical History / Comment(s): old age Father Family Medical History: Myocardial Infarction ([place]) Medications and Allergies Home Medications Medication Instructions Recorded Confirmed Type Aricept 23mg 23 mg PO HS 11/30/17 12/10/17 History Cholecalciferol [Vitamin D3] 1,000 unit PO DAILY 11/30/17 12/10/17 History Fish Oil/Dha/Epa [Fish Oil 1,200 1 cap PO DAILY 11/30/17 12/10/17 History mg Fish Oil] Flaxseed Oil [[place]-3 Flaxseed Oil] 1,000 mg PO DAILY 11/30/17 12/10/17 History Memantine [Namenda] 10 mg PO BID 11/30/17 12/10/17 History Red Yeast Rice 600 mg PO DAILY 11/30/17 12/10/17 History buPROPion XL [Wellbutrin Xl] 150 mg PO DAILY 11/30/17 12/10/17 History Allergies Allergy/AdvReac Type Severity Reaction Status Date / Time No Known Allergies Allergy Verified 12/10/17 22:47 Physical Exam Vitals: Vital Signs Temp Pulse Pulse Pulse Resp BP BP 12/11/17 07:00 98 F 68 16 138/70 12/11/17 02:38 98.4 F 69 18 134/86 12/11/17 02:10 68 18 131/113 12/11/17 02:00 72 19 160/79 12/11/17 01:30 68 19 135/70 10/24/18 00:50 66 19 134/90 10/24/18 00:10 71 17 141/90 12/10/17 23:40 70 18 148/76 12/10/17 23:10 72 19 146/80 12/10/17 23:07 68 12/10/17 23:04 18 12/10/17 22:34 98.0 F 74 18 146/71 Pulse Ox 12/11/17 07:00 92 L 12/11/17 02:38 95 12/11/17 02:10 94 L 12/11/17 02:00 94 L 12/11/17 01:30 95 12/11/17 00:50 95 12/11/17 00:10 96 12/10/17 23:40 97 12/10/17 23:10 98 12/10/17 23:07 12/10/17 23:04 12/10/17 22:34 93 L Intake and Output 12/10/17 12/11/17 12/11/17 22:59 06:59 14:59 Output Total 600 Balance -600 Output: Urine 600 Other: Voiding Method Diaper # Voids 2 Weight 63.503 kg 65 kg - Constitutional General appearance: no acute distress, thin - EENT Eyes: PERRLA ENT: normal oropharynx Ears: bilateral: normal - Neck Neck: normal ROM - Respiratory Respiratory: right: diminished - Cardiovascular Rhythm: regular Abnormal Heart Sounds: systolic murmur ankle Peripheral Edema: bilateral: 1+ - Gastrointestinal General gastrointestinal: soft - Integumentary Integumentary: normal - Neurologic Neurologic: CNII-XII intact - Musculoskeletal Needs assist with ambulation - Psychiatric Patient awake and alert pleasantly confused disoriented to time Results CBC & Chem 7: 12/10/17 23:00 12/10/17 23:00 Labs: Abnormal Lab Results - Last 24 Hours (Table) 12/10/17 12/10/17 12/10/17 Range/Units 23:00 23:00 23:00 WBC 11.4 H (3.8-10.6) k/uL RBC 3.91 L (4.30-5.90) m/uL Hgb 12.4 L (13.0-17.5) gm/dL MCV 101.8 H (80.0-100.0) fL Plt Count 483 H (150-450) k/uL Neutrophils # 8.7 H (1.3-7.7) k/uL Sodium 136 L (137-145) mmol/L BUN 25 H (9-20) mg/dL Glucose 105 H (74-99) mg/dL Total Creatine Kinase 41 L (55-170) U/L Total Protein 5.6 L (6.3-8.2) g/dL Albumin 3.0 L (3.5-5.0) g/dL Chest x-ray: report reviewed Thrombosis Risk Factor Assmnt - Choose All That Apply Any of the Below Risk Factors Present?: Yes Each Factor Represents 1 point: Swollen legs (current) Each Risk Factor Represents 3 Points: Age 75 years or older Other congenital or acquired thrombophilia - If yes, enter type in comment: No Thrombosis Risk Factor Assessment Total Risk Factor Score: 4 Thrombosis Risk Factor Assessment Level: Moderate Risk Assessment and Plan Plan: Assessment Require pneumonia Pleural effusion and positive MRSA Hypertension Hyperlipidemia 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
[2017-12-11] MEDS: MEMANTINE 10 MG TAB PO SCH ×2 (10:59→20:03)
[2017-12-11] MEDS: buPROPion XL 150 MG TAB.ER.24H PO SCH (10:59)
[2017-12-11] MEDS: CHOLECALCIFEROL 1,000 UNIT TAB PO SCH (10:59)
--- NOTE | 2017-12-11 16:45 | P.GSCN ---
<An Villalobos - Last Filed: 12/11/17 16:26> History of Present Illness Consult date: 12/11/17 Reason for Consult: Recurrent right pleural effusion, Pleurx catheter placement. Requesting physician: Kira Mclean History of present illness: This is an 82-year-old frail, chronically ill gentleman who follows with Dr. Richard Katz on an outpatient basis. He has a previous medical history of dementia, hypertension, hyperlipidemia, previous tobacco dependence, protein calorie malnutrition, right pleural effusion status post thoracentesis on November 30 with removal of 3.2 L serosanguineous fluid which was positive for MRSA. He was previously in the hospital a couple weeks ago with shortness of breath at which time Dr. Courtney performed thoracentesis with cytology results inconclusive for mesothelioma. He was to follow next week in the office with Dr. Abreu for consultation regarding possible biopsy for diagnosis. Upon discharge from the hospital he was feeling somewhat better, however over the last couple of days he developed recurrent progressive shortness of breath and was brought to [facility] emergency room for evaluation. Chest x-ray was completed which demonstrated a moderate right pleural effusion and atelectasis, which was worse than his previous chest x-ray. The patient was admitted for evaluation and treatment. Pulmonology was consulted. The patient was started on IV vancomycin. Discussion was had with the patient's regarding aggressive treatment versus palliative treatment. The patient's voice does not wish for aggressive treatment, instead she would like palliative care that she would like to take her home. Cardiothoracic surgery was consulted for placement of Pleurx catheter so patient may drain effusion at home. Review of Systems Review of systems was completed and was negative except as noted. - Constitutional Reports fever, Reports malaise, Reports poor appetite, Reports weight loss - Respiratory Reports dyspnea Past Medical History Past Medical History: Dementia, Hyperlipidemia History of Any Multi-Drug Resistant Organisms: MRSA Year Discovered:: 11/30/17 MDRO Source:: MRSA PLEURAL FLUID Past Surgical History: Hernia Repair Additional Past Surgical History / Comment(s): carpal tunnel surgery, vasectomy , cataract surgery Past Anesthesia/Blood Transfusion Reactions: No Reported Reaction Past Psychological History: No Psychological Hx Reported Smoking Status: Former smoker Past Alcohol Use History: None Reported Past Drug Use History: None Reported - Past Family History Mother Additional Family Medical History / Comment(s): old age Father Family Medical History: Myocardial Infarction ([place]) Medications and Allergies Home Medications Medication Instructions Recorded Confirmed Type Aricept 23mg 23 mg PO HS 11/30/17 12/10/17 History Cholecalciferol [Vitamin D3] 1,000 unit PO DAILY 11/30/17 12/10/17 History Fish Oil/Dha/Epa [Fish Oil 1,200 1 cap PO DAILY 11/30/17 12/10/17 History mg Fish Oil] Flaxseed Oil [[place]-3 Flaxseed Oil] 1,000 mg PO DAILY 11/30/17 12/10/17 History Memantine [Namenda] 10 mg PO BID 11/30/17 12/10/17 History Red Yeast Rice 600 mg PO DAILY 11/30/17 12/10/17 History buPROPion XL [Wellbutrin Xl] 150 mg PO DAILY 11/30/17 12/10/17 History Allergies Allergy/AdvReac Type Severity Reaction Status Date / Time No Known Allergies Allergy Verified 12/10/17 22:47 Surgical - Exam Vital Signs Temp Pulse Resp BP Pulse Ox 98.0 F 74 18 146/71 93 L 12/10/17 22:34 12/10/17 22:34 12/10/17 22:34 12/10/17 22:34 12/10/17 22:34 - General no distress, no pain, cachectic, chronically ill - Eyes PERRL, normal ocular movement - Neck no masses, no bruits, trachea midline - Respiratory Lungs sounds diminished bilaterally, right greater than left. Respirations even , nonlabored. Currently on room air with oxygen saturation 96%. - Cardiovascular S1, S2 present. Regular rate and rhythm. Palpable peripheral pulses bilaterally. Bilateral lower extremity edema present. - Abdomen Abdomen: soft, non tender, bowel sounds - Genitourinary Deferred - Rectum Deferred - Integumentary no rash, no growths, no abnormal pigmentation - Neurologic confused - Psychiatric Awake and alert but confused. oriented to person Results - Labs 12/10/17 23:00 12/10/17 23:00 Abnormal Lab Results - Last 24 Hours (Table) 12/10/17 12/10/17 12/10/17 Range/Units 23:00 23:00 23:00 WBC 11.4 H (3.8-10.6) k/uL RBC 3.91 L (4.30-5.90) m/uL Hgb 12.4 L (13.0-17.5) gm/dL MCV 101.8 H (80.0-100.0) fL Plt Count 483 H (150-450) k/uL Neutrophils # 8.7 H (1.3-7.7) k/uL Sodium 136 L (137-145) mmol/L BUN 25 H (9-20) mg/dL Glucose 105 H (74-99) mg/dL Total Creatine Kinase 41 L (55-170) U/L Total Protein 5.6 L (6.3-8.2) g/dL Albumin 3.0 L (3.5-5.0) g/dL Diabetes panel 12/10/17 Range/Units 23:00 Sodium 136 L (137-145) mmol/L Potassium 5.1 (3.5-5.1) mmol/L Chloride 104 (98-107) mmol/L Carbon Dioxide 25 (22-30) mmol/L BUN 25 H (9-20) mg/dL Creatinine 1.00 (0.66-1.25) mg/dL Glucose 105 H (74-99) mg/dL Calcium 8.9 (8.4-10.2) mg/dL AST 37 (17-59) U/L ALT 48 (21-72) U/L Alkaline Phosphatase 113 (38-126) U/L Total Protein 5.6 L (6.3-8.2) g/dL Albumin 3.0 L (3.5-5.0) g/dL Calcium panel 12/10/17 Range/Units 23:00 Calcium 8.9 (8.4-10.2) mg/dL Albumin 3.0 L (3.5-5.0) g/dL Pituitary panel 12/10/17 Range/Units 23:00 Sodium 136 L (137-145) mmol/L Potassium 5.1 (3.5-5.1) mmol/L Chloride 104 (98-107) mmol/L Carbon Dioxide 25 (22-30) mmol/L BUN 25 H (9-20) mg/dL Creatinine 1.00 (0.66-1.25) mg/dL Glucose 105 H (74-99) mg/dL Calcium 8.9 (8.4-10.2) mg/dL Adrenal panel 12/10/17 Range/Units 23:00 Sodium 136 L (137-145) mmol/L Potassium 5.1 (3.5-5.1) mmol/L Chloride 104 (98-107) mmol/L Carbon Dioxide 25 (22-30) mmol/L BUN 25 H (9-20) mg/dL Creatinine 1.00 (0.66-1.25) mg/dL Glucose 105 H (74-99) mg/dL Calcium 8.9 (8.4-10.2) mg/dL Total Bilirubin 0.4 (0.2-1.3) mg/dL AST 37 (17-59) U/L ALT 48 (21-72) U/L Alkaline Phosphatase 113 (38-126) U/L Total Protein 5.6 L (6.3-8.2) g/dL Albumin 3.0 L (3.5-5.0) g/dL - Imaging Chest x-ray: report reviewed, image reviewed CT scan - chest: report reviewed, image reviewed Assessment and Plan (1) Pleural effusion Status: Acute Code(s): J90 - PLEURAL EFFUSION, NOT ELSEWHERE CLASSIFIED SNOMED Code(s): 21153763 Plan: The patient seen and examined at the bedside with Dr. Martinez. Chart/diagnostics were reviewed. Discussed the case with Dr. Mclean. We offered to place a Pleurx catheter for patient to have his pleural effusion drained at home. The usual perioperative course was discussed with the patient's , risks and benefits were explained, and she consented to surgery. We will plan for surgery Saturday morning, the patient may be discharged to home with home care after surgery from our standpoint when okay with other consultants. Continue medical management per primary care service. Thank you Dr. Mclean for this consult. We look forward to working with you in the care of your patient. Time with Patient: Greater than 30 <Jose Martinez - Last Filed: 12/19/17 17:26> Surgical - Exam Vital Signs Temp Pulse Resp BP Pulse Ox 98.0 F 74 18 146/71 93 L 12/10/17 22:34 12/10/17 22:34 12/10/17 22:34 12/10/17 22:34 12/10/17 22:34 Results - Labs 12/13/17 12:59 12/12/17 07:27 Assessment and Plan Plan: The patient was seen and examined. I agree with the above assessment and plan. The patient is an 82 y/o male with recurrent right pleural effusion. His imaging studies were reviewed. Placement of a pleur-x catheter was recommended. The risks, benefits, and alternatives were discussed with the patient and his . All of their questions were answered.
--- NOTE | 2017-12-11 17:04 | P.CNPUL ---
History of Present Illness Consult date: 12/11/17 Reason for consult: dyspnea, pleural effusion History of present illness: 82-year-old male patient, chronically ill with advanced dementia was having significant impairment in cognitive functions, mobility and the patient is been having difficulties with gait and his been requiring 24-hour care which is provided at this point in time by his . The patient was in the hospital approximately 2 weeks ago where the patient came in with a large right-sided pleural effusion and the patient was quite short of breath. A thoracentesis was done in the emergency department and a total of 3.2 L of pleural fluid was aspirated and following that the patient's family opted to take him home. The fluid came back and exudate with elevated LDH and protein. Fluid cytology was negative for malignancy however the cultures indicated MRSA. Despite this positive culture, the patient's fluid characteristics did not show empyema and the patient does not look septic at all and he does not have any fever chills or sweats note he has any pleuritic chest pain. He is hemodynamically stable on room air. He presented to the hospital because of some increased shortness of breath. A repeat chest x-ray was done and the patient was found to have a recurrence in the right-sided pleural effusion. There was a moderate-sized right-sided pleural effusion with atelectasis in the right lung base. The patient also has some infiltration of the left mid lung compared to the old examination along with a small left-sided pleural effusion. No heart failure. The patient despite this is calm and comfortable. Not much information can be obtained from the patient because of his underlying dementia. 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 He is an ex-smoker having quit smoking approximately 40 years ago. He swallows fine. No reported aspiration. No nausea vomiting or diarrhea. He walks around without help of a walker. I had a lengthy discussion with the . told me that the patient already has an appointment with the cardiothoracic surgery. The patient has a DO NOT RESUSCITATE per DO NOT INTUBATE CODE STATUS. The was given various options and based on the low conversation that we had, and based on the patient' s poor baseline performance status and advanced dementia, he would not be a candidate for any further thoracoscopic evaluation although I made it clear to the family that there is an increased risk of him having a malignancy with a negative right-sided pleural effusion. In fact, my suspicion for malignancy is high. Nevertheless, the family is insistent palliative approaches which I agree for the reasons mentioned above. I give the option of a Pleurx catheter which will make this patient be discharged within 24 hours after the catheter insertion with home care. The felt that the patient does much better and his home setting and she was taken home as soon as possible and the Pleurx catheter would allow us do that. The patient and the voiced no wishes for any aggressive interventions including treatment such as chemotherapy even if diagnosis of cancer is established. For that reason, I consulted cardiothoracic surgery. No COPD. Positive asthma. No other issues for now. Review of Systems ROS unobtainable: due to mental status Constitutional: Reports fatigue, Reports lethargy, Reports weakness Eyes: bilateral blurred vision, bilateral decreased vision, denies bulging eye Ears: deny: decreased hearing, ear discharge, earache, tinnitus Ears, nose, mouth and throat: Denies headache, Denies sore throat Cardiovascular: Reports decreased exercise tolerance, Reports dyspnea on exertion, Reports orthopnea, Reports shortness of breath Respiratory: Reports dyspnea Gastrointestinal: Denies abdominal pain, Denies diarrhea, Denies nausea, Denies vomiting Genitourinary: Reports as per HPI Musculoskeletal: Denies myalgias Musculoskeletal: absent: ankle pain, ankle stiffness, ankle swelling Integumentary: Denies pruritus, Denies rash Neurological: Reports aphasia, Reports ataxia, Reports balance difficulties, Reports change in mentation, Reports change in speech, Reports confusion, Reports gait dysfunction, Reports hearing difficulties, Reports memory loss, Reports weakness Psychiatric: Denies anxiety, Denies depression Endocrine: Reports as per HPI Hematologic/Lymphatic: Reports as per HPI Allergic/Immunologic: Reports as per HPI Past Medical History Past Medical History: Dementia, Hyperlipidemia Additional Past Medical History / Comment(s): Recurrent right-sided pleural effusion, asbestosis him a dementia, hyperlipidemia History of Any Multi-Drug Resistant Organisms: MRSA Date of last positivie culture/infection: 11/30/17 MDRO Source:: MRSA PLEURAL FLUID Past Surgical History: Hernia Repair Additional Past Surgical History / Comment(s): carpal tunnel surgery, vasectomy , cataract surgery Past Anesthesia/Blood Transfusion Reactions: No Reported Reaction Past Psychological History: No Psychological Hx Reported Smoking Status: Former smoker Past Alcohol Use History: None Reported Past Drug Use History: None Reported - Past Family History Mother Additional Family Medical History / Comment(s): old age Father Family Medical History: Myocardial Infarction ([place]) Medications and Allergies Home Medications Medication Instructions Recorded Confirmed Type Aricept 23mg 23 mg PO HS 11/30/17 12/10/17 History Cholecalciferol [Vitamin D3] 1,000 unit PO DAILY 11/30/17 12/10/17 History Fish Oil/Dha/Epa [Fish Oil 1,200 1 cap PO DAILY 11/30/17 12/10/17 History mg Fish Oil] Flaxseed Oil [[place]-3 Flaxseed Oil] 1,000 mg PO DAILY 11/30/17 12/10/17 History Memantine [Namenda] 10 mg PO BID 11/30/17 12/10/17 History Red Yeast Rice 600 mg PO DAILY 11/30/17 12/10/17 History buPROPion XL [Wellbutrin Xl] 150 mg PO DAILY 11/30/17 12/10/17 History Allergies Allergy/AdvReac Type Severity Reaction Status Date / Time No Known Allergies Allergy Verified 12/10/17 22:47 Physical Exam Vitals: Vital Signs Temp Pulse Pulse Pulse Resp BP BP 12/11/17 14:45 98.1 F 61 16 137/85 12/11/17 07:00 98 F 68 16 138/70 12/11/17 02:38 98.4 F 69 18 134/86 12/11/17 02:10 68 18 131/113 12/11/17 02:00 72 19 160/79 12/11/17 01:30 68 19 135/70 12/11/17 00:50 66 19 134/90 12/11/17 00:10 71 17 141/90 12/10/17 23:40 70 18 148/76 12/10/17 23:10 72 19 146/80 12/10/17 23:07 68 12/10/17 23:04 18 12/10/17 22:34 98.0 F 74 18 146/71 Pulse Ox 12/11/17 14:45 96 12/11/17 07:00 92 L 12/11/17 02:38 95 12/11/17 02:10 94 L 12/11/17 02:00 94 L 12/11/17 01:30 95 12/11/17 00:50 95 12/11/17 00:10 96 12/10/17 23:40 97 12/10/17 23:10 98 12/10/17 23:07 12/10/17 23:04 12/10/17 22:34 93 L Intake and Output 12/11/17 12/11/17 12/11/17 06:59 14:59 22:59 Intake Total 140 Output Total 600 Balance -600 140 Intake: Intake, IV Titration 140 Amount Sodium Chloride 0.9% 1, 140 000 ml @ 20 mls/hr IV . Q24H [facility] Rx#:[id number] Output: Urine 600 Other: Voiding Method Diaper Diaper Diaper # Voids 2 Weight 65 kg 65 kg Gen. appearance the patient is calm and comfortable likely distress. Head exam was generally normal. There was no scleral icterus or corneal arcus. Mucous membranes were moist. Neck was supple and without jugular venous distension, thyromegaly, or carotid bruits. Carotids were easily palpable bilaterally. There was no adenopathy. Lungs sounds are diminished in the right lung along with dullness to percussion. There is also thoracic kyphosis Cardiac exam revealed the PMI to be normally situated and sized. The rhythm was regular and no extrasystoles were noted during several minutes of auscultation. The first and second heart sounds were normal and physiologic splitting of the second heart sound was noted. There were no murmurs, rubs, clicks, or gallops. Abdominal exam revealed normal bowel sounds. The abdomen was soft, non-tender, and without masses, organomegaly, or appreciable enlargement of the abdominal aorta. Examination of the extremities revealed easily palpable radial, femoral and pedal pulses. There was no cyanosis, clubbing or edema. Examination of the skin revealed no evidence of significant rashes, suspicious appearing nevi or other concerning lesions. Neurologic the patient has difficulties with communication. He has impairment in cognitive functions. He has poor insight on his condition. Unable to give us a detailed history on his current or previous problems. Gait was not assessed. No resting tremors. Results - Laboratory Findings CBC and BMP: 12/10/17 23:00 12/10/17 23:00 PT/INR, D-dimer PT 10.4 sec (9.0-12.0) 12/10/17 23:00 INR 1.1 (<1.2) 12/10/17 23:00 Abnormal lab findings: Abnormal Labs 12/10/17 12/10/17 12/10/17 23:00 23:00 23:00 WBC 11.4 H RBC 3.91 L Hgb 12.4 L MCV 101.8 H Plt Count 483 H Neutrophils # 8.7 H Sodium 136 L BUN 25 H Glucose 105 H Total Creatine Kinase 41 L Total Protein 5.6 L Albumin 3.0 L - Diagnostic Findings Chest x-ray: image reviewed Assessment and Plan Plan: Assessment 1 recurrent exudative right-sided pleural effusion, likely malignant although the previous thoracentesis yielded a negative pleural fluid cytology. Asbestos- related pleural fluid is also considered. Unlikely to be a complication of the pleural space infection or pneumonia despite the previous MRSA culture in the pleural fluid. The patient is not septic looking and the patient does not have any signs of empyema at this point in time. 2 shortness of breath secondary to above 3 pleural plaquing/asbestosis 4 dementia with significant impairment of the cognitive functions and impaired performance and functional status 5 hyperlipidemia 6 previous history of thoracentesis involving the right lung with evacuation of 3. liters of pleural fluid Plan Discussed the case with the family at length. Impaired performance and functional status. Unable to undergo any aggressive treatments including thoracoscopic evaluation, or any other intervention such as chemoradiation therapy. Family and the patient both insistent conservative measures and they' re also interested in taking him home as soon as possible knowing that the patient has advanced dementia and he does much better with his home setting. Discussed various options. I thought this Pleurx catheter with palliate shortness of breath and is something that can be handled at home with the patient and his family can have the pleural fluid drained on a periodic basis. Ultimately the Pleurx catheter may also help with pleurodesis. The family were insistent this intervention based on that I consulted cardiac thoracic surgery. I do not think is a need for laparoscopic evaluation or lung biopsies. The suspicion for malignancy remains high. Suspicion forinfection is extremely low. We'll follow. He has a DNR/DNI CODE STATUS.
[2017-12-11] MEDS: VANCOMYCIN 1,250 MG in SODIUM CHLORIDE 0.9% 250 ML IVPB SCH (20:03)
[2017-12-11] MEDS: DONEPEZIL 10 MG TAB PO SCH (20:03)
[2017-12-12] MEDS: SODIUM CHLORIDE 0.9% 1,000 ML IV SCH ×2 (01:44→22:30)
--- NOTE | 2017-12-12 09:55 | P.PN ---
Subjective Progress Note Date: 12/12/17 Principal diagnosis: Recurrent right pleural effusion. Previous medical history of dementia, hypertension, hyperlipidemia, previous tobacco dependence, protein calorie malnutrition, right pleural effusion status post thoracentesis on November 30 with removal of 3.2 L serosanguineous fluid. Patient's currently sitting up in bed in no acute distress. Denies pain. Denies significant shortness of breath. Daughter is at the bedside. No new complaints. Objective - Vital Signs Vital signs: Vital Signs Temp 98.2 F 12/12/17 01:00 Pulse 86 12/12/17 03:13 Resp 16 12/12/17 03:13 BP 150/79 12/12/17 01:00 Pulse Ox 90 L 12/12/17 01:00 Intake & Output 12/11/17 12/12/17 12/12/17 18:59 06:59 18:59 Intake Total 140 Balance 140 Weight 65 kg Intake: Intake, IV Titration 140 Amount Sodium Chloride 0.9% 1, 140 000 ml @ 20 mls/hr IV . Q24H [facility] Rx#:[id number] Other: Voiding Method Diaper Diaper Diaper # Voids 2 - Constitutional General appearance: Present: cooperative, no acute distress - Respiratory Details: Lungs sounds diminished bilaterally, right greater than left. Respirations even , nonlabored. Currently on room air with oxygen saturation 90%. - Cardiovascular Details: S1, S2 present. Regular rate and rhythm. No edema present. - Gastrointestinal Gastrointestinal Comment(s): Abdomen soft, nontender, nondistended. Active bowel sounds 4 quadrants. Tolerating diet. - Genitourinary Genitourinary Comment(s): Continues to void, incontinent. - Integumentary Integumentary Comment(s): Skin is warm and dry with evidence of good perfusion. - Musculoskeletal Musculoskeletal: Present: generalized weakness - Psychiatric Psychiatric Comment(s): Alert and oriented to person only. Patient is calm and cooperative. - Allied health notes Allied health notes reviewed: nursing - Labs CBC & Chem 7: 12/10/17 23:00 12/10/17 23:00 Labs: Microbiology - Last 24 Hours (Table) 12/10/17 23:00 Blood Culture - Preliminary Blood No Growth after 24 hours Assessment and Plan (1) Pleural effusion Current Visit: Yes Status: Acute Code(s): J90 - PLEURAL EFFUSION, NOT ELSEWHERE CLASSIFIED SNOMED Code(s): 07018385 Plan: 1. Plan is for right-sided Pleurx catheter placement tomorrow, 12/13/2017. Patient will be nothing by mouth after midnight. 2. Will teach family today about Pleurx catheter and how to drain. 3. Will obtain CT of the chest without contrast for evaluation of a fusion. 4. Medical management per primary care service. 5. Patient may be discharged to home with home care after surgery tomorrow from our standpoint when okay with other consultants. 6. Case management consulted for insurance authorization for Pleurx catheter bottles. Time with Patient: Greater than 30
[2017-12-12 10:31] LABS: Calcium 8.7 mg/dL (8.4-10.2); Potassium 4.6 mmol/L (3.5-5.1)
[2017-12-12] MEDS: VANCOMYCIN 1,250 MG in SODIUM CHLORIDE 0.9% 250 ML IVPB SCH (11:01)
[2017-12-12] MEDS: MEMANTINE 10 MG TAB PO SCH ×2 (11:02→21:03)
[2017-12-12] MEDS: buPROPion XL 150 MG TAB.ER.24H PO SCH (11:02)
[2017-12-12] MEDS: CHOLECALCIFEROL 1,000 UNIT TAB PO SCH (11:04)
--- NOTE | 2017-12-12 12:23 | P.PN ---
Subjective Patient resting comfortably in bed family at bedside. Discussed plans with . is stated that patient will not be treated for possible malignancy patient's no code. Patients has agreed to him for pleurex catheter. After insertion of the catheter plan for discharge home Objective - Vital Signs Vital signs: Vital Signs Temp 98.8 F 12/12/17 06:45 Pulse 84 12/12/17 06:45 Resp 16 12/12/17 06:45 BP 132/58 12/12/17 06:45 Pulse Ox 93 L 12/12/17 06:45 Intake & Output 12/11/17 12/12/17 12/12/17 18:59 06:59 18:59 Intake Total 140 Balance 140 Weight 65 kg Intake: Intake, IV Titration 140 Amount Sodium Chloride 0.9% 1, 140 000 ml @ 20 mls/hr IV . Q24H [facility] Rx#:[id number] Other: Voiding Method Diaper Diaper Diaper # Voids 2 - Constitutional General appearance: Present: thin - EENT Eyes: Present: PERRLA Ears: bilateral: normal - Neck Neck: Present: normal ROM - Respiratory Respiratory: bilateral: diminished - Cardiovascular Rhythm: regular Abnormal Heart Sounds: Present: systolic murmur - Gastrointestinal General gastrointestinal: Present: soft - Integumentary Integumentary: Present: normal - Neurologic Neurologic: Present: CNII-XII intact - Musculoskeletal Musculoskeletal: Present: generalized weakness - Psychiatric Psychiatric Comment(s): Patient awake and alert pleasantly confused - Labs CBC & Chem 7: 12/10/17 23:00 12/12/17 07:27 Labs: Microbiology - Last 24 Hours (Table) 12/10/17 23:00 Blood Culture - Preliminary Blood No Growth after 24 hours Assessment and Plan Plan: Assessment Acne acquired pneumonia Pleural effusion positive MRSA History of hypertension Hyperlipidemia Dementia Moderate protein deficiency malnutrition Plan Patient's no code no further treatment Thoracic surgeon will be inserting Pleurx catheter on Saturday
--- NOTE | 2017-12-12 13:36 | P.PN ---
Subjective Progress Note Date: 12/12/17 Principal diagnosis: Recurrent exudative right-sided pleural effusion, likely malignant 82-year-old male patient, chronically ill with advanced dementia was having significant impairment in cognitive functions, mobility and the patient is been having difficulties with gait and his been requiring 24-hour care which is provided at this point in time by his . The patient was in the hospital approximately 2 weeks ago where the patient came in with a large right-sided pleural effusion and the patient was quite short of breath. A thoracentesis was done in the emergency department and a total of 3.2 L of pleural fluid was aspirated and following that the patient's family opted to take him home. The fluid came back and exudate with elevated LDH and protein. Fluid cytology was negative for malignancy however the cultures indicated MRSA. Despite this positive culture, the patient's fluid characteristics did not show empyema and the patient does not look septic at all and he does not have any fever chills or sweats note he has any pleuritic chest pain. He is hemodynamically stable on room air. He presented to the hospital because of some increased shortness of breath. A repeat chest x-ray was done and the patient was found to have a recurrence in the right-sided pleural effusion. There was a moderate-sized right-sided pleural effusion with atelectasis in the right lung base. The patient also has some infiltration of the left mid lung compared to the old examination along with a small left-sided pleural effusion. No heart failure. The patient despite this is calm and comfortable. Not much information can be obtained from the patient because of his underlying dementia. 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 He is an ex-smoker having quit smoking approximately 40 years ago. He swallows fine. No reported aspiration. No nausea vomiting or diarrhea. He walks around without help of a walker. I had a lengthy discussion with the . told me that the patient already has an appointment with the cardiothoracic surgery. The patient has a DO NOT RESUSCITATE per DO NOT INTUBATE CODE STATUS. The was given various options and based on the low conversation that we had, and based on the patient' s poor baseline performance status and advanced dementia, he would not be a candidate for any further thoracoscopic evaluation although I made it clear to the family that there is an increased risk of him having a malignancy with a negative right-sided pleural effusion. In fact, my suspicion for malignancy is high. Nevertheless, the family is insistent palliative approaches which I agree for the reasons mentioned above. I give the option of a Pleurx catheter which will make this patient be discharged within 24 hours after the catheter insertion with home care. The felt that the patient does much better and his home setting and she was taken home as soon as possible and the Pleurx catheter would allow us do that. The patient and the voiced no wishes for any aggressive interventions including treatment such as chemotherapy even if diagnosis of cancer is established. For that reason, I consulted cardiothoracic surgery. No COPD. Positive asthma. No other issues for now. On 12/12/2017 patient seen in follow-up on medical surgical floor. Dr. Mclean met with the patient's family today, daughters, , and a couple other family members. Patient's condition was discussed, and her condition was made for Pleurx catheter insertion for the recurrent right-sided pleural effusion, high suspicion for underlying malignancy. But in view of patient's advanced dementia, poor baseline functional status, Pleurx catheter insertion was recommended for palliative reasons. CT surgery has been consulted, and the plan is to proceed with Pleurx catheter insertion tomorrow at 9:00 in the morning. The patient looks calm and comfortable, in no acute distress, denies any chest pain, pulse ox is 93%, hemodynamically stable, afebrile. Respirations are even and nonlabored. Lung sounds are diminished on the right side, with dullness to percussion, clear on the left. Objective - Vital Signs Vital signs: Vital Signs Temp 98.8 F 12/12/17 06:45 Pulse 84 12/12/17 06:45 Resp 16 12/12/17 06:45 BP 132/58 12/12/17 06:45 Pulse Ox 93 L 12/12/17 06:45 Intake & Output 12/11/17 12/12/17 12/12/17 18:59 06:59 18:59 Intake Total 140 Balance 140 Weight 65 kg Intake: Intake, IV Titration 140 Amount Sodium Chloride 0.9% 1, 140 000 ml @ 20 mls/hr IV . Q24H [facility] Rx#:[id number] Other: Voiding Method Diaper Diaper Diaper # Voids 2 - Exam Gen. appearance the patient is calm and comfortable likely distress. Head exam was generally normal. There was no scleral icterus or corneal arcus. Mucous membranes were moist. Neck was supple and without jugular venous distension, thyromegaly, or carotid bruits. Carotids were easily palpable bilaterally. There was no adenopathy. Lungs sounds are diminished in the right lung along with dullness to percussion. There is also thoracic kyphosis Cardiac exam revealed the PMI to be normally situated and sized. The rhythm was regular and no extrasystoles were noted during several minutes of auscultation. The first and second heart sounds were normal and physiologic splitting of the second heart sound was noted. There were no murmurs, rubs, clicks, or gallops. Abdominal exam revealed normal bowel sounds. The abdomen was soft, non-tender, and without masses, organomegaly, or appreciable enlargement of the abdominal aorta. Examination of the extremities revealed easily palpable radial, femoral and pedal pulses. There was no cyanosis, clubbing or edema. Examination of the skin revealed no evidence of significant rashes, suspicious appearing nevi or other concerning lesions. Neurologic the patient has difficulties with communication. He has impairment in cognitive functions. He has poor insight on his condition. Unable to give us a detailed history on his current or previous problems. Gait was not assessed. No resting tremors. - Labs CBC & Chem 7: 12/10/17 23:00 12/12/17 07:27 Labs: Microbiology - Last 24 Hours (Table) 12/10/17 23:00 Blood Culture - Preliminary Blood No Growth after 24 hours Assessment and Plan Assessment: 1 recurrent exudative right-sided pleural effusion, likely malignant although the previous thoracentesis yielded a negative pleural fluid cytology. Asbestos- related pleural fluid is also considered. Unlikely to be a complication of the pleural space infection or pneumonia despite the previous MRSA culture in the pleural fluid. The patient is not septic looking and the patient does not have any signs of empyema at this point in time. 2 shortness of breath secondary to above 3 pleural plaquing/asbestosis 4 dementia with significant impairment of the cognitive functions and impaired performance and functional status 5 hyperlipidemia 6 previous history of thoracentesis involving the right lung with evacuation of 3. liters of pleural fluid Plan: Meeting was held with the patient and the family, CT surgery consulted, and placement of right Pleurx catheter is planned for tomorrow with the goal of palliation. Pleural fluid can still be sent for cytology, underlying malignancy is highly suspected, patient would be a poor candidate for any treatment even if the malignancy was diagnosed. Patient's family is in agreement with the plan. For now patient is clinically stable, is not experiencing any distress, on room air. I performed a history & physical examination of the patient and discussed their management with my nurse practitioner, Amy Amato. I reviewed the nurse practitioner's note and agree with the documented findings and plan of care. Lung sounds are diminished over right lung. The findings and the impression was discussed with the patient. I attest to the documentation by the nurse practitioner. Time with Patient: Less than 30
--- NOTE | 2017-12-12 16:33 | CT ---
EXAMINATION TYPE: CT chest wo con DATE OF EXAM: 12/12/2017 COMPARISON: 11/30/2017 HISTORY: Follow up scan CT DLP: 298.[address] of the chest was performed with lung and mediastinal window settings submitted. The la ck of contrast limits evaluation of the vascular, mediastinal and parenchymal structures including th e upper abdomen. LUNGS: Significant diminution in size of right-sided pleural effusion although continues to be large. Effusion extends from the left and right lung base through the right upper lobe with greatest AP dim ension of 7 cm. There is a small left-sided pleural effusion noted although increased from prior stud y with greatest AP dimension of 2.5 cm. There is a basilar right greater than left compressive atelec tasis. There is also patchy infiltrate within the left upper lobe and scattered areas of groundglass infiltrate. Given pleural effusions underlying mass is difficult to evaluate for. MEDIASTINUM/JENNIFER: Thoracic aorta is of normal caliber with limited evaluation given lack of contrast . The heart is not enlarged. Coronary artery calcifications identified. No evidence for mediastinal mass. No lymph nodes greater than 1cm. UPPER ABDOMEN: No significant abnormality is seen. OTHER: No significant other abnormality. IMPRESSION: 1. Persistent right greater than left pleural effusions although right-sided effusion and straight s ignificant interval diminution in size. Associated compressive atelectasis.
[2017-12-12] MEDS ORDERED: LACTATED RINGERS 1,000 ML IV SCH (20:53)
[2017-12-12] MEDS: DONEPEZIL 10 MG TAB PO SCH (21:04)
[2017-12-13] MEDS: VANCOMYCIN 1,250 MG in SODIUM CHLORIDE 0.9% 250 ML IVPB SCH (01:59)
[2017-12-13 08:29] VITALS: RESP 16
[2017-12-13] MEDS ORDERED: LACTATED RINGERS 1,000 ML IV ONE (08:38)
[2017-12-13] MEDS ORDERED: PROPOFOL 10 MG/ML 20 ML VIAL IV ONE (09:05)
[2017-12-13] MEDS ORDERED: fentaNYL (PF) 50 MCG/ML 2 ML AMP ONE (09:05)
[2017-12-13] MEDS ORDERED: KETAMINE 10 MG/ML 20 ML VIAL ONE (09:05)
[2017-12-13] MEDS ORDERED: LIDOCAINE 1% INJ 10MG/ML (20 ML MDV) SQ ONE (09:18)
--- NOTE | 2017-12-13 11:08 | XR ---
EXAMINATION TYPE: XR chest 1V portable DATE OF EXAM: 12/13/2017 HISTORY: Shortness of breath. COMPARISON: 12/10/2017 TECHNIQUE: Single view of the chest is submitted. FINDINGS: Right basilar pleural catheter is in place. Right basilar pneumothorax present. Pleural effusion note d. Density within the right lung base has improved since prior study. The heart is stable. Hilar and mediastinal structures are within normal limits. Degenerative changes are seen of the dorsal spine. IMPRESSION: 1. Right basilar pleural catheter is in place. Right basilar pneumothorax present. Pleural effusion noted. Density within the right lung base has improved since prior study.
--- NOTE | 2017-12-13 11:12 | FL ---
Fluoroscopy History: Chest Tube insertion Chest Tube Insertion with Dr. Martinez. 61 sec fl time, 1 image scanned
--- NOTE | 2017-12-13 11:40 | PCN ---
PROCEDURE NOTE DATE OF SURGERY: 12/13/2017 PREOPERATIVE DIAGNOSIS: Recurrent right pleural effusion. POSTOPERATIVE DIAGNOSIS: Recurrent right pleural effusion. PROCEDURE: Placement of right PleurX catheter using fluoroscopic guidance. SURGEON: Jose Martinez MD. TIMBER MANAGEMENT ASSISTANT: None. ANESTHESIA: Local with IV sedation. SPECIMEN: Right pleural fluid. COMPLICATIONS: None. INDICATION: The patient is an 82-year-old male with a history of multiple medical problems including advanced dementia who does carry a CODE STATUS OF DO NOT RESUSCITATE, who presented to the hospital several weeks ago with shortness of breath. He was diagnosed with a large right pleural effusion. Thoracentesis was performed with improvement in symptoms. Cultures were positive for MRSA though he did not appear to have an empyema. He returned to the hospital now with recurrence of the shortness of breath. Repeat imaging studies again confirmed a moderate to large-sized right pleural effusion. Placement of a PleurX catheter was recommended. The risks, benefits, and alternatives to the procedure were discussed with the patient and his . All of his questions were answered. Consent was obtained. FINDINGS: Approximately 1.5 L of serosanguineous fluid drained from the right pleural space. PROCEDURE IN DETAIL: The patient was taken to the operating room and placed supine on the operating table. The right chest and flank were prepped and draped in the usual sterile fashion. Intravenous sedation was administered. Using a finder needle and local anesthetic, the right pleural space was entered. Serosanguineous fluid was aspirated easily. A finder needle was then placed in the same area and again serosanguineous fluid was easily aspirated. A guidewire was then placed in the right pleural space and its position confirmed using fluoroscopy. A counterincision was then performed. Additional local anesthetic was infiltrated throughout the track. The PleurX catheter was passed between the two incisions using a tunneler. Using standard Seldinger technique , the tunnel over the wire was sequentially enlarged again using fluoroscopic guidance. The PleurX catheter was then passed into the right pleural space through the break away sheath. Final imaging studies revealed good placement of the PleurX catheter and no significant apical pneumothorax. Approximately 1.5 L of serosanguineous fluid was drained from the right pleural space. This catheter was secured to the skin using silk suture. The counter incision was closed using a Vicryl suture. Sterile dressing was applied. The patient appeared to tolerate the procedure well. There were no immediate complications. He returned to the recovery room in stable condition. ARTI / TUTUN: [id number] / [id number]
--- NOTE | 2017-12-13 12:53 | P.PN ---
Subjective Progress Note Date: 12/13/17 Principal diagnosis: Recurrent right pleural effusion. Previous medical history of dementia, hypertension, hyperlipidemia, previous tobacco dependence, protein calorie malnutrition, right pleural effusion status post thoracentesis on November 30 with removal of 3.2 L serosanguineous fluid. POD #0 placement of right Pleurx catheter using fluoroscopic guidance with removal of 1.5 L serosanguineous fluid Patient's currently sitting up in bed in no acute distress. Pleurx catheter was placed this morning. Teaching was done with the patient, his , and 2 daughters at the bedside. All questions were answered. Objective - Vital Signs Vital signs: Vital Signs Temp 97.6 F 12/13/17 11:00 Pulse 70 12/13/17 12:27 Resp 16 12/13/17 10:45 BP 151/81 12/13/17 12:27 Pulse Ox 97 12/13/17 12:27 Intake & Output 12/12/17 12/13/17 12/13/17 18:59 06:59 18:59 Intake Total 970 540 300 Output Total 282 Balance 970 540 18 Intake: IV 300 Intake, IV Titration 250 Amount Vancomycin 1,250 mg In 250 Sodium Chloride 0.9% 250 ml @ 125 mls/hr IVPB Q16H [facility] Rx#:[id number] Oral 720 540 Output: Urine 280 Estimated Blood Loss 2 Other: Voiding Method Diaper # Voids 1 2 - Constitutional General appearance: Present: cooperative, no acute distress - Respiratory Details: Lungs sounds diminished bilaterally. Respirations even, nonlabored. Currently on room air with oxygen saturation 97%. Right-sided Pleurx catheter in place under occlusive dressing. - Cardiovascular Details: S1, S2 present. Regular rate and rhythm. No edema present. - Gastrointestinal Gastrointestinal Comment(s): Abdomen soft, nontender, nondistended. Active bowel sounds 4 quadrants. Tolerating diet. - Genitourinary Genitourinary Comment(s): Continues to void, incontinent. - Integumentary Integumentary Comment(s): Skin is warm and dry with evidence of good perfusion. - Musculoskeletal Musculoskeletal: Present: gait normal, strength equal bilaterally - Psychiatric Psychiatric Comment(s): Alert and oriented to person only. Patient is calm and cooperative. - Allied health notes Allied health notes reviewed: nursing - Labs CBC & Chem 7: 12/10/17 23:00 10/25/18 07:27 Labs: Microbiology - Last 24 Hours (Table) 12/10/17 23:00 Blood Culture - Preliminary Blood No Growth after 48 hours - Imaging and Cardiology Chest x-ray: report reviewed, image reviewed Assessment and Plan (1) Pleural effusion Current Visit: Yes Status: Acute Code(s): J90 - PLEURAL EFFUSION, NOT ELSEWHERE CLASSIFIED SNOMED Code(s): 86044075 Plan: 1. Pleurx catheter placed this morning. Follow-up chest x-ray reviewed, stable. 2. Reinforce Pleurx catheter teaching. 3. Medical management per primary care service. 4. Patient may be discharged to home with home care from our standpoint when okay with other consultants. 5. Case management consulted for insurance authorization for Pleurx catheter bottles. 6. Discharge information for Pleurx catheter as well as contact information placed on discharge plan. Time with Patient: Less than 30
[2017-12-13 13:39] LABS: Basophils % (A) 0 %; Eosinophils # (A) 0.1 k/uL (0-0.7); Eosinophils % (A) 1 %; HCT 37.2 % (39.0-53.0); HGB 11.8 gm/dL (13.0-17.5); Lymphocytes # (A) 0.6 k/uL (1.0-4.8); Lymphocytes % (A) 8 %; MCH 31.9 pg (25.0-35.0); MCHC 31.8 g/dL (31.0-37.0); MCV 100.3 fL (80.0-100.0); Mean Platelet Volume 6.8; Monocytes # (A) 0.4 k/uL (0-1.0); Monocytes % (A) 5 %; Neutrophils # (A) 6.7 k/uL (1.3-7.7); Neutrophils % (A) 84 %; Platelet Count 441 k/uL (150-450); RBC 3.71 m/uL (4.30-5.90); RDW 12.5 % (11.5-15.5)
[2017-12-13] MEDS: buPROPion XL 150 MG TAB.ER.24H PO SCH (13:42)
[2017-12-13] MEDS: CHOLECALCIFEROL 1,000 UNIT TAB PO SCH (13:43)
[2017-12-13] MEDS: MEMANTINE 10 MG TAB PO SCH (13:43)
[2017-12-13 14:36] VITALS: BP 139/82; PULSE 85; TEMP 97.5
--- NOTE | 2017-12-13 16:08 | P.PN ---
Subjective Progress Note Date: 12/13/17 Principal diagnosis: Recurrent exudative right-sided pleural effusion, likely malignant 82-year-old male patient, chronically ill with advanced dementia was having significant impairment in cognitive functions, mobility and the patient is been having difficulties with gait and his been requiring 24-hour care which is provided at this point in time by his . The patient was in the hospital approximately 2 weeks ago where the patient came in with a large right-sided pleural effusion and the patient was quite short of breath. A thoracentesis was done in the emergency department and a total of 3.2 L of pleural fluid was aspirated and following that the patient's family opted to take him home. The fluid came back and exudate with elevated LDH and protein. Fluid cytology was negative for malignancy however the cultures indicated MRSA. Despite this positive culture, the patient's fluid characteristics did not show empyema and the patient does not look septic at all and he does not have any fever chills or sweats note he has any pleuritic chest pain. He is hemodynamically stable on room air. He presented to the hospital because of some increased shortness of breath. A repeat chest x-ray was done and the patient was found to have a recurrence in the right-sided pleural effusion. There was a moderate-sized right-sided pleural effusion with atelectasis in the right lung base. The patient also has some infiltration of the left mid lung compared to the old examination along with a small left-sided pleural effusion. No heart failure. The patient despite this is calm and comfortable. Not much information can be obtained from the patient because of his underlying dementia. 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 He is an ex-smoker having quit smoking approximately 40 years ago. He swallows fine. No reported aspiration. No nausea vomiting or diarrhea. He walks around without help of a walker. I had a lengthy discussion with the . told me that the patient already has an appointment with the cardiothoracic surgery. The patient has a DO NOT RESUSCITATE per DO NOT INTUBATE CODE STATUS. The was given various options and based on the low conversation that we had, and based on the patient' s poor baseline performance status and advanced dementia, he would not be a candidate for any further thoracoscopic evaluation although I made it clear to the family that there is an increased risk of him having a malignancy with a negative right-sided pleural effusion. In fact, my suspicion for malignancy is high. Nevertheless, the family is insistent palliative approaches which I agree for the reasons mentioned above. I give the option of a Pleurx catheter which will make this patient be discharged within 24 hours after the catheter insertion with home care. The felt that the patient does much better and his home setting and she was taken home as soon as possible and the Pleurx catheter would allow us do that. The patient and the voiced no wishes for any aggressive interventions including treatment such as chemotherapy even if diagnosis of cancer is established. For that reason, I consulted cardiothoracic surgery. No COPD. Positive asthma. No other issues for now. On 12/12/2017 patient seen in follow-up on medical surgical floor. Dr. Mclean met with the patient's family today, daughters, , and a couple other family members. Patient's condition was discussed, and her condition was made for Pleurx catheter insertion for the recurrent right-sided pleural effusion, high suspicion for underlying malignancy. But in view of patient's advanced dementia, poor baseline functional status, Pleurx catheter insertion was recommended for palliative reasons. CT surgery has been consulted, and the plan is to proceed with Pleurx catheter insertion tomorrow at 9:00 in the morning. The patient looks calm and comfortable, in no acute distress, denies any chest pain, pulse ox is 93%, hemodynamically stable, afebrile. Respirations are even and nonlabored. Lung sounds are diminished on the right side, with dullness to percussion, clear on the left. On 12/13/2017 patient seen in follow-up on medical surgical floor. Presently the Pleurx catheter was placed, with evacuation of 1.5 L of pleural fluid. Patient is back in his room, and he is calm and comfortable, currently on room air, and his pulse ox is 91-97%, he is resting comfortably in bed, he denies any acute distress, no shortness of breath or chest pain. He is afebrile, hemodynamically stable. Today's labs have been reviewed, hemoglobin is 11.8, WBC is 8.0. No BMP was done today. Pleural fluid was sent for cytology. No fever, no chills, blood cultures remain negative after 48 hours. No phlegm production, no hemoptysis. Patient no acute distress, He is tolerating oral diet. His family would like to take him home today, and patient has been cleared from CT surgery perspective, he is clear from pulmonary perspective as well for discharge home today with home care. Objective - Vital Signs Vital signs: Vital Signs Temp 97.5 F L 12/13/17 14:36 Pulse 85 12/13/17 14:36 Resp 16 12/13/17 14:36 BP 139/82 12/13/17 14:36 Pulse Ox 91 L 12/13/17 14:36 Intake & Output 12/12/17 12/13/17 12/13/17 18:59 06:59 18:59 Intake Total 970 540 300 Output Total 282 Balance 970 540 18 Intake: IV 300 Intake, IV Titration 250 Amount Vancomycin 1,250 mg In 250 Sodium Chloride 0.9% 250 ml @ 125 mls/hr IVPB Q16H [facility] Rx#:[id number] Oral 720 540 Output: Urine 280 Estimated Blood Loss 2 Other: Voiding Method Diaper # Voids 1 2 - Exam Gen. appearance the patient is calm and comfortable likely distress. Head exam was generally normal. There was no scleral icterus or corneal arcus. Mucous membranes were moist. Neck was supple and without jugular venous distension, thyromegaly, or carotid bruits. Carotids were easily palpable bilaterally. There was no adenopathy. Lungs sounds are improved air entry bilaterally, with some limited bibasilar crackles. There is also thoracic kyphosis. There is a right Pleurx catheter in place covered with a surgical dressing. Clean dry and intact. Cardiac exam revealed the PMI to be normally situated and sized. The rhythm was regular and no extrasystoles were noted during several minutes of auscultation. The first and second heart sounds were normal and physiologic splitting of the second heart sound was noted. There were no murmurs, rubs, clicks, or gallops. Abdominal exam revealed normal bowel sounds. The abdomen was soft, non-tender, and without masses, organomegaly, or appreciable enlargement of the abdominal aorta. Examination of the extremities revealed easily palpable radial, femoral and pedal pulses. There was no cyanosis, clubbing or edema. Examination of the skin revealed no evidence of significant rashes, suspicious appearing nevi or other concerning lesions. Neurologic the patient has difficulties with communication. He has impairment in cognitive functions. He has poor insight on his condition. Unable to give us a detailed history on his current or previous problems. Gait was not assessed. No resting tremors. - Labs CBC & Chem 7: 12/13/17 12:59 12/12/17 07:27 Labs: Abnormal Lab Results - Last 24 Hours (Table) 12/13/17 Range/Units 12:59 RBC 3.71 L (4.30-5.90) m/uL Hgb 11.8 L (13.0-17.5) gm/dL Hct 37.2 L (39.0-53.0) % MCV 100.3 H (80.0-100.0) fL Lymphocytes # 0.6 L (1.0-4.8) k/uL Microbiology - Last 24 Hours (Table) 12/10/17 23:00 Blood Culture - Preliminary Blood No Growth after 48 hours Assessment and Plan Assessment: 1 recurrent exudative right-sided pleural effusion, likely malignant although the previous thoracentesis yielded a negative pleural fluid cytology. Asbestos- related pleural fluid is also considered. Unlikely to be a complication of the pleural space infection or pneumonia despite the previous MRSA culture in the pleural fluid. The patient is not septic looking and the patient does not have any signs of empyema at this point in time. He is status post right Pleurx catheter placement for recurrent right-sided pleural effusion with evacuation of 1.5 L of pleural fluid today on 12/13/2017. 2 shortness of breath secondary to above, improved 3 pleural plaquing/asbestosis 4 dementia with significant impairment of the cognitive functions and impaired performance and functional status 5 hyperlipidemia 6 previous history of thoracentesis involving the right lung with evacuation of 3. liters of pleural fluid Plan: Patient tolerated right proximal catheter placement well, 1.5 L of pleural fluid was evacuated. Patient is breathing easier, no distress, no fever or chills. No chest pain. He is not requiring any supplemental oxygen. Vital signs are stable. Mood was sent for cytology, patient has been cleared for discharge home with home care by CT surgery, patient is stable for discharge from pulmonary perspective as well. Patient's CODE STATUS is DO NOT RESUSCITATE , family meeting was held yesterday, and palliative care was recommended. Blood cultures remain negative, no fever or chills. We can discontinue his antibiotics. Follow-up with his doctor Sterling next week. I performed a history & physical examination of the patient and discussed their management with my nurse practitioner, Amy Amato. I reviewed the nurse practitioner's note and agree with the documented findings and plan of care. Lung sounds are positive for improved air entry bilaterally, with minimal bibasilar crackles. The findings and the impression was discussed with the patient. I attest to the documentation by the nurse practitioner. Time with Patient: Less than 30
--- NOTE | 2017-12-13 20:55 | P.DS ---
Providers Date of admission: 12/11/17 00:40 Attending physician: Richard Katz Consults: 12/11/17 00:39 Consult Physician Urgent Consulting Provider: Annette Courtney Consult Reason/Comments: pleural effusion Do you want consulting provider notified?: Yes, Notify in am 12/11/17 13:59 Consult Physician Routine Consulting Provider: Mehran Abreu Consult Reason/Comments: recurrent right pleral effusion, Pleurix cath Do you want consulting provider notified?: Yes Primary care physician: Richard Katz Hospital Course: This is a pleasant 82 years old male with past medical history of dementia, hyperlipidemia, recurrent right-sided pleural effusion,status post thoracocentasis, however the c/s was showing MRSA but cytology was negative , pt is with advanced dementia, he is confused to the surrounding and he does not why he is in the hospital , as per this is his baseline , and is supplied and family wanted to go with conservative palliative close despite there is risk for malignancy and they have lengthy discussions with pulmonary team regarding this recommended palliative Pleurx chest tube. I told me today that they don't want any chemotherapy or surgery even if the case turned out to be cancer. However patient has done well and he doesn't have fever or leukocytosis. On the pleural fluid does not look empyema. Patient is at baseline. He is saturating well. No chest pain or dyspnea by the time I saw patient. No change in urine or bowel habits. No nausea or vomiting. No fever.And patient was cleared by both surgery and pulmonary team for discharge. pt was cleared by pulmonary and surgical team for discharge. problem and management plan was discussed with at bed side, as pt does not have capacity to make medical decision. Patient is found stable and can be discharged home however he needs follow-up as an outpatient. an appointment was made with Dr. Katz office on 12/20/17 however pt wanted to be cancelled because this date is their marriage anniversary and she wanted to call herself and make appointment as well as with surgical and pulmonary team as well as with pcp. Gen: patient is a AAOx0, no distress CVS: S1-S2, RRR, no murmur Lungs: B/L CTA, no wheezing. Right Pleurx chest tube is in a Place with dressing Abdomen: soft, no distention, no tenderness, positive bowel sounds Extremity: no leg edema or induration Time spent more than 35 minutes Patient Condition at Discharge: Serious Plan - Discharge Summary Discharge Rx Participant: Yes New Discharge Prescriptions: No Action Red Yeast Rice 600 mg PO DAILY Memantine [Namenda] 10 mg PO BID Flaxseed Oil [Otterbein-3 Flaxseed Oil] 1,000 mg PO DAILY Fish Oil/Dha/Epa [Fish Oil 1,200 mg Fish Oil] 1 cap PO DAILY buPROPion XL [Wellbutrin Xl] 150 mg PO DAILY Cholecalciferol [Vitamin D3] 1,000 unit PO DAILY Aricept 23mg 23 mg PO HS Discharge Medication List Aricept 23mg 23 mg PO HS 11/30/17 [History] Cholecalciferol [Vitamin D3] 1,000 unit PO DAILY 11/30/17 [History] Fish Oil/Dha/Epa [Fish Oil 1,200 mg Fish Oil] 1 cap PO DAILY 11/30/17 [History] Flaxseed Oil [Otterbein-3 Flaxseed Oil] 1,000 mg PO DAILY 11/30/17 [History] Memantine [Namenda] 10 mg PO BID 11/30/17 [History] Red Yeast Rice 600 mg PO DAILY 11/30/17 [History] buPROPion XL [Wellbutrin Xl] 150 mg PO DAILY 11/30/17 [History] Follow up Appointment(s)/Referral(s): Richard Katz MD [Primary Care Provider] - 1-2 Days Annette Courtney MD [STAFF PHYSICIAN] - 1 Week Jose Martinez MD [STAFF PHYSICIAN] - 1 Week [facility] Visiting Nurse, [NON-STAFF] - Patient Instructions/Handouts: Viral Pneumonia (DC), Pleural Effusion (DC) Activity/Diet/Wound Care/Special Instructions: Pleurx catheter instructions: 1. hammerer to drain with Pleurx bottle 3 times weekly. May increase or decrease number of drainage sessions per patient needs. 2. Do not drain more than 1 L daily. 3. Patient may shower daily. 4. hammerer to reinforce teaching with the family Pleurx catheter drainage technique. 5. Weekly drainage amounts may be called to An Villalobos NP at [phone] or faxed to the surgery office at [phone]. Discharge Disposition: HOME WITH HOME HEALTH SERVICES
[2017-12-14] MEDS ORDERED: VANCOMYCIN TROUGH DUE 1 EACH MISC MISCELLANE ONE (10:00)
--- NOTE | 2017-12-17 08:40 | CDI ---
Documentation Clarification Form Date: 12/17/2017 8:21:43 AM From: MANISHA Baca; Naheed Castellanos Demurrage Worker Phone: If you have a question about this query, please contact Naheed Castellanos Demurrage Worker at [phone] between 8am and 5pm. Admit Date: 12/11/2017 12:40:00 AM Patient Name: Chico Farr Visit Number: [id number] Discharge Date: 12/13/2017 ATTENTION: The Clinical Documentation Specialists (CDI) and [facility] Coding Staff appreciate your assistance in clarifying documentation. Please respond to the clarification below the line at the bottom and electronically sign. The CDI & [facility] Coding staff will review the response and follow-up if needed. Please note: Queries are made part of the Legal Health Record. If you have any questions, please contact the author of this message via ITS. Francis Delaney MD Conflicting documentation has been found in the medical record regarding pneumonia. On ED note, H&P and initial progress notes, pneumonia along with recurrent pleural effusion is documented. Pulmonary consultation documents that pneumonia is unlikely. Your Dischrg Sum does not list your final diagnoses. History/Risk Factors: Former smoker, pleural plaquing/asbestosis, dementia Clinical Indicators: Shortness of breath. Treatment: Vancomycin Chest CT: Persistent pleural effusion with compressive atelectasis. In your opinion what is the most clinically appropriate diagnosis for this patient? Pneumonia ruled in? Pneumonia ruled out? Other explanation of clinical findings Unable to determine (no explanation for clinical findings) ____pna is unlikely MTDD
== END 2017-12-13 15:38 | disposition home health service (06) | DRG 187 ==
LOC: EC 22:27 → 4SSUR 12-11 00:40
PROVIDERS: ADMIT Family Medicine; ATTEND Family Medicine
PROC: 0W9930Z Drainage of Right Pleural Cavity with Drainage Device, Percutaneous Approach (ICD-10-PCS; principal; 2017-12-13 09:00)
DX: J90 Pleural effusion, not elsewhere classified (principal); E44.0 Moderate protein-calorie malnutrition; J98.11 Atelectasis; E78.5 Hyperlipidemia, unspecified; F03.90 Unspecified dementia, unspecified severity, without behavioral disturbance, psychotic disturbance, mood disturbance, and anxiety; I10 Essential (primary) hypertension; J45.909 Unspecified asthma, uncomplicated; J92.0 Pleural plaque with presence of asbestos; Z66 Do not resuscitate; Z82.49 Family history of ischemic heart disease and other diseases of the circulatory system; Z87.891 Personal history of nicotine dependence; Z79.899 Other long term (current) drug therapy; Z86.14 Personal history of Methicillin resistant Staphylococcus aureus infection; Z98.49 Cataract extraction status, unspecified eye; Z68.22 Body mass index [BMI] 22.0-22.9, adult
CPT/HCPCS: 36415; 71045; 71046; 71250; 80048; 80053; 82550; 82553; 83735; 83880; 84484; 85025; 85610; 85730; 87040; 88108; 88305; 93005; 96365; 96366; 99285

== ENCOUNTER 2018-01-16 13:18 | Day surgery (SDC) | payer MEDICARE, BC ==
[2018-01-13 16:21] VITALS: BMI 21.1
[~2018-01-16 13:18] MED LIST: DEXAMETHASONE SOD PHOSPHATE 10 MG/ML 1 ML VIAL IV ONE; HYDROmorphone 1 MG/ML 1 ML SYRINGE IVP PRN; LACTATED RINGERS 1,000 ML IV SCH; LIDOCAINE 1% 20 ML VIAL (10MG/ML) FOR IV START INTRADERMA PRN; ONDANSETRON 4 MG/2 ML VIAL IVP ONE; SCOPOLAMINE 1.5MG/72HR PATCH TRANSDERM ONE
[2018-01-16] MEDS ORDERED: fentaNYL (PF) 50 MCG/ML 2 ML AMP ONE (14:27)
[2018-01-16] MEDS ORDERED: PROPOFOL 10 MG/ML 20 ML VIAL IV ONE (14:27)
[2018-01-16] MEDS ORDERED: LIDOCAINE 1% INJ 10MG/ML (20 ML MDV) ONE (14:27)
[2018-01-16] MEDS ORDERED: BUPIVACAINE (PF) 0.25% 30 ML VIAL SQ ONE (14:43)
[2018-01-16 15:05] VITALS: TEMP 97
[2018-01-16 15:16] VITALS: RESP 16
[2018-01-16 16:16] VITALS: BP 174/86; PULSE 69
--- NOTE | 2018-01-16 16:59 | XR ---
EXAMINATION TYPE: XR chest 1V portable DATE OF EXAM: 01/16/2018 COMPARISON: Yesterday HISTORY: Post catheter chest tube removal TECHNIQUE: Single frontal view of the chest is obtained. FINDINGS: There is no heart failure nor confluent pneumonic infiltrate. There is some coarsening of interstitial markings. I see no pneumothorax. Heart size is normal. Thoracic aorta is atheromatous. IMPRESSION: Pulmonary fibrotic changes. No pneumothorax. Minimal pleural reaction at the lateral rig ht lung base unchanged. Chest tube has been removed.
--- NOTE | 2018-01-17 07:32 | OP ---
OPERATIVE REPORT DATE OF SURGERY: 01/16/2018. PREOPERATIVE DIAGNOSIS: Recurrent right pleural effusion. POSTOPERATIVE DIAGNOSIS: Recurrent right pleural effusion. PROCEDURE: Removal of right PleurX catheter. SURGEON: Jose Martinez MD. SCOREKEEPER: None. ANESTHESIA: Local with IV sedation. SPECIMEN: None. COMPLICATIONS: None. INDICATION: The patient is an 82-year-old male with a history of multiple medical problems who had a PleurX catheter placed in the right pleural space back in November. The catheter is no longer draining any fluid. Follow up imaging studies revealed resolution of his pleural effusion. Removal of the catheter was requested. The risks, benefits, and alternatives to this procedure were discussed with the patient. All his questions were answered. Consent was obtained. PROCEDURE IN DETAIL: The patient was taken to the operating room and placed supine on the operating room table. IV sedation was administered. The right chest was prepped and draped in the usual sterile fashion. Local anesthetic was injected into the exit site of the catheter. Dissection was carried out around the catheter until the cuff was freed circumferentially. The catheter was then removed easily and was intact. Hemostasis was assured. There were no immediate complications. The patient appeared to have tolerated the procedure well. He returned to the recovery room in stable condition. MMODL / IJN: [id number] / MTDD
== END 2018-01-16 17:19 | disposition home or self-care (01) ==
LOC: OR 13:18
PROVIDERS: ATTEND Surgery
DX: J90 Pleural effusion, not elsewhere classified (principal); J84.10 Pulmonary fibrosis, unspecified; F03.90 Unspecified dementia, unspecified severity, without behavioral disturbance, psychotic disturbance, mood disturbance, and anxiety; I10 Essential (primary) hypertension; E78.5 Hyperlipidemia, unspecified; E46 Unspecified protein-calorie malnutrition; F32.9 Major depressive disorder, single episode, unspecified; Z68.21 Body mass index [BMI] 21.0-21.9, adult; Z79.899 Other long term (current) drug therapy; Z86.14 Personal history of Methicillin resistant Staphylococcus aureus infection; Z87.891 Personal history of nicotine dependence
CPT/HCPCS: 71045; 32552; J1100; J2405; J2001; J3010; J2704